=== PATIENT | male | born 1985 | race Caucasian/White ===

== ENCOUNTER 2020-11-15 11:19 | Emergency (ER) | payer OTHER, SELFPAY ==
--- NOTE | ~2020-11-15 | XR_ITS ---
EXAMINATION: XR chest 2V EXAM DATE: 11/15/2020 12:35 INDICATION: Fever and chills. TECHNIQUE: Frontal and lateral projections of the chest obtained and reviewed. There is no prior ottoniel dy for comparison. FINDINGS: There is hyperinflation. Pectus excavatum. The lungs are clear. There are no pleural effus ions. The cardiomediastinal silhouette is within normal limits. There is no pneumothorax suspected. The bones and soft tissues are unremarkable. IMPRESSION: No acute cardiopulmonary findings. Reviewed, dictated and finalized at location A. HOUSE TENDER
[2020-11-15 11:43] VITALS: BP 118/76; PULSE 119; RESP 18; TEMP 38.4; O2SAT 100
--- NOTE | 2020-11-15 11:55 | ED.GENADULT ---
HPI - General Adult General Chief complaint: Upper Respiratory Infection Stated complaint: COVID Symptoms Time Seen by Provider: 11/15/20 11:50 Source: patient and RN notes reviewed Mode of arrival: ambulatory Limitations: no limitations History of Present Illness HPI narrative: 35-year-old male presents with complaints of upper respiratory infection symptoms, fever, body aches, cough, and intermittent headaches (not the worst of his/her life) for day s. with little relief. Dry cough with intermittent productive cough (phlegm). Rhinorrhea and nasal congestion. No exacerbating factors. High fevers, highest F, orally with intermittent chills. No nausea, vomiting, and abdominal pain. Denies chest pain, dyspnea, coughing up blood, difficulty swallowing, jaw pain, dental pain, facial pain, foreign body sensation, and rash. Some parts of this dictation were generated by voice recognition software and may contain typographical and/or grammatical inaccuracies. Related Data Home Medications Medication Instructions Recorded Confirmed No Home Medications 11/15/20 11/15/20 Allergies Allergy/AdvReac Type Severity Reaction Status Date / Time No Known Allergies Allergy Verified 11/15/20 11:30 Review of Systems Review of Systems: Narrative: CONSTITUTIONAL: Complains of fever. Denies chills, sweats. EYES: Denies visual changes, redness, discharge. ENT: Complains of rhinorrhea, congestion. Denies sore throat, otalgia. CARDIOVASCULAR: Denies chest pain, palpitations, edema. RESPIRATORY: Denies dyspnea, wheezing. Complains of dry cough. GASTROINTESTINAL: Denies abdominal pain, nausea, vomiting, diarrhea. GENITOURINARY: Denies dysuria, hematuria, abnormal discharge. SKIN: Denies rash or itching. MUSCULOSKELETAL: Denies acute back pain, joint pain. Complains of myalgia. NEUROLOGIC: Denies numbness or focal weakness. PSYCHIATRIC: Denies anxiety or depression. Complains of intermittent ESTRELLA. All systems reviewed & are unremarkable except as noted in HPI and below PMFSH Comments At time of signature, agree with nurse past medical, surgical, social, and family history. There is no relevant family history pertinent to the presenting complaint. Exam Narrative: Exam Narrative: GENERAL: This is a well-nourished, well-developed patient, in no apparent distress. Speaks in full sentences and ambulates with steady gait without dyspnea. HEAD: normocephalic, atraumatic. EYES: PERRL. Sclera clear/white. Vision is grossly intact. EARS: External ears normal, auditory canals clear and without drainage, TMs normal without perforation. Hearing grossly intact. NOSE: External nose normal with no obvious nasal discharge, nares with mild-moderate redness and enlarged turbinates, clear rhinorrhea. THROAT: Mucous membranes moist, posterior pharynx with PND, mild erythema, no exudate, and normal tonsils. No drainage, no concern for Peritonsillar abscess. No drooling, trismus, or neck swelling. NECK: Neck supple, non-tender without lymphadenopathy, masses or thyromegaly. CARDIOVASCULAR: Regular rate and rhythm without murmurs, gallops, or rubs. RESPIRATORY: Clear to auscultation. Breath sounds equal bilaterally. No wheezes, rales, or rhonchi. GASTROINTESTINAL: Abdomen soft, non-tender, nondistended. Bowel sounds are active. No hepato-splenomegaly, or palpable masses. No guarding. SKIN: warm, intact with no suspicious lesions or rash, good texture and turgor. NEURO: awake, alert, and oriented to person, place and time. There were no obvious focal neurologic abnormalities. EXTREMITIES: No clubbing, cyanosis, or edema. BACK: Nontender without deformity or crepitance. No flank tenderness with palpation. Dede Coma Scale Eye Opening: Spontaneous 4 Dede Coma Scale Motor: Obeys Commands 6 Ethel Coma Scale Verbal: Oriented 5 Course Vital Signs Vital signs: Vital Signs Temperature 38.4 C H 11/15/20 11:43 Pulse Rate 119 H 11/15/20 11:43 Respira
[2020-11-15 12:08] VITALS: TEMP 38.4
[2020-11-15] MEDS: IBUPROFEN 400 MG TABLET PO (12:08)
--- NOTE | 2020-11-15 12:10 | ED.GENADULT ---
HPI - General Adult General Chief complaint: Upper Respiratory Infection Stated complaint: COVID Symptoms Time Seen by Provider: 11/15/20 11:50 Source: patient and RN notes reviewed Mode of arrival: ambulatory Limitations: no limitations History of Present Illness HPI narrative: 35-year-old male presents with complaints of upper respiratory infection symptoms, fever, sore throat, cough, intermittent dyspnea and headaches (not the worst of his life) for the past 3 days. Julio reports increasing symptoms over the past 24 hours with increase sore throat, decrease po intake, and high fever. No treatment. Dry cough without chest congestion. Rhinorrhea and nasal congestion. Exacerbating factors consist of swallowing. High fevers, highest 102F, orally with intermittent chills and sweats. No nausea, vomiting, and abdominal pain. Denies chest pain, coughing up blood, jaw pain, dental pain, facial pain, foreign body sensation, and rash. The patient reports he have not been diagnosed with COVID-19. The patient reports he is not waiting for the results of a COVID-19 lab test. The patient reports he do not have weakness or fatigue. The patient reports he do not have a worsening cough. Denies chest pain. The patient reports he do not have any loss of taste or diarrhea. Denies recent traveling. Denies concerns for COVID-19 or exposures been home with limited outdoor exposure except for essential household needs and return home. At this time, patient is not suspected of having COVID-19. Some parts of this dictation were generated by voice recognition software and may contain typographical and/or grammatical inaccuracies. Related Data Allergies Allergy/AdvReac Type Severity Reaction Status Date / Time No Known Allergies Allergy Verified 11/16/20 15:08 Review of Systems Review of Systems: Narrative: CONSTITUTIONAL: Complains of fever, chills, sweats. EYES: Denies visual changes, redness, discharge. ENT: Complains of rhinorrhea, congestion, sore throat. Denies otalgia. CARDIOVASCULAR: Denies chest pain, palpitations, edema. RESPIRATORY: Denies wheezing. Complains of intermittent dyspnea, dry cough. GASTROINTESTINAL: Denies abdominal pain, nausea, vomiting, diarrhea. GENITOURINARY: Denies dysuria, hematuria, abnormal discharge. SKIN: Denies rash or itching. MUSCULOSKELETAL: Denies acute back pain, joint pain, myalgia. NEUROLOGIC: Denies numbness or focal weakness. PSYCHIATRIC: Denies anxiety or depression. Complains of intermittent ESTRELLA. All systems reviewed & are unremarkable except as noted in HPI and below PMFSH Past Medical History Medical History (Updated 11/19/20 @ 17:43 by Narciso Cummins MD) Anxiety Depression Hemorrhoids History of OCD (obsessive compulsive disorder) Irritable bowel syndrome Surgical History Surgical History (Updated 11/19/20 @ 17:43 by Narciso Cummins MD) History of colonoscopy Family History Family History (Updated 11/16/20 @ 16:19 by Jessica Ryan PA-C) Father Unknown family medical history Mother Alive and well Hyperthyroidism Other Hypothyroidism Social History Social History (Updated 11/16/20 @ 15:46 by Jessica Ryan PA-C) Social History: Mr. Mcneil lives at home with his mother. He is independent in his ADLs but does not drive. His PCP is Dr. Siddiqui. He is a lifelong nonsmoker and does not drink alcohol or use drugs. He designates his sister, Jennifer, as his surrogate decision maker and he would like to be a full code. Smoking status: Never smoker Tobacco type: cigarettes Second hand tobacco smoke exposure: No Alcohol intake: never Substance use: never Substance use type: does not use Additional living arrangements comments: mother and her spouse Gender identity (if verbalized by the patient): Male Spiritual care concerns: No Comments At time of signature, agree with nurse past medical, surgical, social, and family history. There is
--- NOTE | 2020-11-15 12:30 | PC.NURSE ---
Pt was given 1,000 mg of Tylenol at 12:20. Unable to scan bracelet, it would not accept. Made several attempts.
[2020-11-15 13:00] VITALS: BP 124/70; PULSE 140; RESP 18; TEMP 38.1; O2SAT 97
--- NOTE | 2020-11-15 13:33 | PC.NURSE ---
Pt very anxious upon visit, retook vitals, pulse is higher than upon arrival, pt figetdy, anxious to get home, pt is OCD.
== END 2020-11-15 13:00 | disposition home or self-care (01) ==
PROVIDERS: Emergency Provider Nurse Practitioner Family; PCP Family Medicine
DX: B34.9 Viral infection, unspecified (principal); Z20.828 Contact with and (suspected) exposure to other viral communicable diseases
CPT/HCPCS: 71046; 87081; 87804; 87880; 99213; A9270; G0463

== ENCOUNTER 2020-11-16 07:46 | Inpatient (IN) | payer OTHER, SELFPAY ==
[2020-11-16] VITALS (17 sets, daily range): BP systolic 103–127; BP diastolic 65–76; PULSE 81–140; RESP 16–26; TEMP 35.9–37.3; O2SAT 93–100
--- NOTE | ~2020-11-16 | XR_ITS ---
EXAMINATION: XR chest 1V portable DATE: 11/21/2020 13:45 INDICATION: COVID pneumonia TECHNIQUE: frontal view of the chest was obtained. COMPARISON: Chest radiograph dated 11/16/2020 FINDINGS: Has been increase in size of a still relatively focal airspace opacity in the left lower lobe. No oth er new airspace opacities, pulmonary edema, pleural effusion or pneumothorax. The cardiomediastinal silhouette is normal. Calcified left hilar lymph nodes consistent with old granulomatous disease. Vis ualized bones and soft tissues are unremarkable. IMPRESSION: 1. Interval increase in focal airspace opacity in the left lower lobe concerning for progression of p neumonia. The isolated location is atypical for COVID pneumonia and would also consider either more t ypical community-acquired pneumonia or aspiration pneumonia. Reviewed, dictated and finalized at location A. ER POWDER BLENDER WET IMPRESSION: 1. Interval increase in focal airspace opacity in the left lower lobe concernin g for progression of pneumonia. The isolated location is atypical for COVID pne umonia and would also consider either more typical community-acquired pneumonia or aspiration pneumonia.
--- NOTE | ~2020-11-16 | CT_ITS ---
EXAMINATION: CT soft tissue neck w con EXAM DATE: 11/16/2020 10:06 INDICATION: Sore throat, can't swallow. TECHNIQUE: Spiral CT of the neck was performed following intravenous injection of 75 mL Omnipaque 350 . Axial, coronal and sagittal images were reviewed. The dose-length product (DLP) for this examinat ion was 349.75 mGy-cm. The exposure was tailored according to patient size (auto mA exposure control ), and iterative reconstruction (ASIR) was used as additional dose reduction technique. There is no prior study for comparison. FINDINGS: The thyroid gland is unremarkable. The submandibular and parotid glands are symmetric. There is no cervical lymphadenopathy. There are no masses identified. The superior mediastinum is unremarkable. The airway is unremarkable, epiglottis and aryepiglottic folds are normal in appeara nce.. Parapharyngeal and pre-glottic fat planes are preserved. The opacified vasculature is paten t. The orbits are unremarkable. Visualized sinuses and mastoid air cells are well aerated. Lung apices are clear. Patient is cachectic. There is cervical spondylosis. IMPRESSION: Unremarkable neck CT exam. Reviewed, dictated and finalized at location A. BUSINESS DEVELOPMENT IMPRESSION: Unremarkable neck CT exam.
--- NOTE | ~2020-11-16 | US_ITS ---
EXAMINATION: US abdomen limited EXAM DATE: 11/20/2020 09:07 INDICATION: Thrombocytopenia. Rule out hepatosplenomegaly. TECHNIQUE: Multiple grayscale and Doppler images of the abdomen right upper quadrant were obtained (b y a technologist who performed the scan) and subsequently reviewed. There is no prior study for bernie bailey. FINDINGS: The pancreatic head and body are normal in appearance. The pancreatic tail is not visualized. The l iver has normal echogenicity and contour. There are no focal liver lesions identified. There is no evidence of intrahepatic biliary duct dilation. Portal venous flow was seen in the hepatopedal, nor mal direction and has normal Doppler waveform. No right-sided hydronephrosis. Common bile duct measures 3 mm, which is normal. The gallbladder wall is normal in thickness, with ex pected amount of distention. No sonographic evidence of pericholecystic fluid. There is no cholelit hiases. Technologist performing exam reports patient did not demonstrate sonographic Burks's sign. Please note that this sign is less reliable in patients who have received pain medication. Spleen measures 13.4 x 6.2 x 5.4 cm, upper limits of normal. IMPRESSION: 1. Spleen size upper limits of normal. Reviewed, dictated and finalized at location B. OPHOTOGRAPHY TECHNICIAN
--- NOTE | ~2020-11-16 | XR_ITS ---
EXAMINATION: XR chest 1V portable EXAM DATE: 11/16/2020 08:48 INDICATION: Weakness. TECHNIQUE: Portable AP frontal chest x-ray was obtained. Comparison is made to prior examination from 11/15/2020. FINDINGS: Mild hyperinflation unchanged. Possible developing left lower lobe retrocardiac infiltrate. There are no pleural effusions. The cardiomediastinal silhouette is within normal limits. There is no pneumothorax suspected. The bones and soft tissues are unremarkable. IMPRESSION: Possible developing left lower lobe acute airspace disease, infection. Reviewed, dictated and finalized at location A. INUOUS MINING OPERATOR IMPRESSION: Possible developing left lower lobe acute airspace disease, infecti on.
[2020-11-16 08:24] LABS: Hematocrit 40.9 % (42.0-52.0); Hemoglobin 13.7 g/dL (14.0-18.0); Immature Platelet Fraction Pct 10.8 % (0.9-11.2); Mean Corpuscular HGB Conc 33.5 g/dl (32-36); Mean Corpuscular Hemoglobin 29.6 pg (26-34); Mean Corpuscular Volume 88.3 fl (80-100); Mean Platelet Volume 12.1 fl (7.4-10.4); Platelet Count Result 117 k/mm3 (150-375); Red Blood Count 4.63 M/mm3 (4.6-6.20); White Blood Count 11.9 K/mm3 (4.5-10.0)
--- NOTE | 2020-11-16 08:26 | ECG_ITS ---
Measurements Intervals [place]y Rate: 98 P: 81 CT: 142 QRS: 89 QRSD: 97 T: 27 QT: 357 QTc: 456 Interpretive Statements SINUS RHYTHM POSSIBLE LEFT ATRIAL ENLARGEMENT INCOMPLETE RIGHT BUNDLE BRANCH BLOCK DELAYED PRECORDIAL R/S TRANSITION BORDERLINE T WAVE ABNORMALITY- ANT/INF LEADS BORDERLINE ECG Electronically Signed On 11-16-2020 14:15:50 GEOPHYSICS TEACHER by Edward Rocha D.O.
[2020-11-16 08:35] LABS: Band Neutrophils Percent 7 % (0-6); Lymphocytes Absolute Manual 0.35 K/mm3 (1.1-4.5); Monocytes Absolute Manual 0.83 K/mm3 (0.1-0.90); Monocytes Percent Manual 7 % (3-9); Neutrophils Absolute Manual 10.71 K/mm3 (1.3-6.7); Neutrophils Percent Manual 83 % (46-73); Platelet Estimate Decreased (Adequate); Total Cells Counted 100
[2020-11-16 08:45] LABS: Alanine Aminotransferase 35 U/L (4-50); Albumin Level 4.7 g/dL (3.5-5.1); Alkaline Phosphatase 55 U/L (38-126); Anion Gap 15 mmol/L (8-16); Aspartate Amino Transferase 42 U/L (17-59); Bilirubin,Total 0.9 mg/dL (0.2-1.3); Blood Urea Nitrogen 38 mg/dL (9-20); Calcium 9.7 mg/dL (8.4-10.2); Carbon Dioxide 26 mmol/L (22-30); Chloride 98 mmol/L (98-107); Estimated CRCL calculation 51 ml/min; Estimated Glomerular Filt Rate > 60; Glucose 133 mg/dL (75-110); Lipase 53 U/L (23-300); Potassium 4.7 mmol/L (3.4-5.0); Sodium 139 mmol/L (137-145)
--- NOTE | 2020-11-16 08:46 | ED.GENADULT ---
HPI - General Adult General Chief complaint: Unspecified Stated complaint: shortness of breath Time Seen by Provider: 11/16/20 08:11 Source: patient Mode of arrival: ambulatory Limitations: no limitations History of Present Illness HPI narrative: This patient is a 35 year old male who presents for evaluation of inability to eat or drink. Patient was evaluated at [facility] yesterday for fever, sore throat, cough for 3 days. He reports that his cough is nonproductive. He reports his throat pain has worsened so he has come to ER. He reports since yesterday he is unable to take pills, drink, or eat food. He feels like it comes right back up. He is constantly having to spit everything . His highest fever was 100.2 F. He reports abdominal pain but he thinks it may be due to dehydration. Patient is extremely thin. He states that his diet has consistent of only bread and eggs for years. He reports being admitted in 2016 with GI issues, but he can not specify a diagnosis or findings. He has not followed with a doctor since. Related Data Allergies Allergy/AdvReac Type Severity Reaction Status Date / Time No Known Allergies Allergy Verified 11/16/20 15:08 Review of Systems Review of Systems: All systems reviewed & are unremarkable except as noted in HPI and below Constitutional: Constitutional: Reports body ache(s) and Reports fever(s) ENT: Reports dysphagia, Denies hoarseness, Denies nasal congestion and Reports odynophagia Cardiovascular: Cardiovascular: Reports no additional cardiovascular complaints Respiratory: Respiratory: Reports cough, Denies hemoptysis and Denies pain on inspiration Gastrointestinal: Gastrointestinal: Reports abdominal pain, Denies diarrhea and Reports nausea PMFSH Past Medical History Medical History (Updated 11/16/20 @ 18:29 by Isaura Varma MD) Anxiety Depression Hemorrhoids History of OCD (obsessive compulsive disorder) Irritable bowel syndrome Surgical History Surgical History (Updated 11/15/20 @ 12:14 by OLIVER Dacosta) History of colonoscopy Family History Family History (Updated 11/16/20 @ 16:19 by Jessica Ryan PA-C) Father Unknown family medical history Mother Alive and well Hyperthyroidism Other Hypothyroidism Social History Social History (Updated 11/16/20 @ 15:46 by Jessica Ryan PA-C) Social History: Mr. Mcneil lives at home with his mother. He is independent in his ADLs but does not drive. His PCP is Dr. Siddiqui. He is a lifelong nonsmoker and does not drink alcohol or use drugs. He designates his sister, Jennifer, as his surrogate decision maker and he would like to be a full code. Smoking status: Never smoker Tobacco type: cigarettes Second hand tobacco smoke exposure: No Alcohol intake: never Substance use: never Substance use type: does not use Additional living arrangements comments: mother and her spouse Gender identity (if verbalized by the patient): Male Spiritual care concerns: No Exam Const: General: cooperative, no acute distress and alert Nutritional Appearance: cachectic Orientation/consciousness: patient oriented x3 Other: constantly spitting HENMT: Head: normocephalic and atraumatic Face and sinus: face symmetric Mouth: Yes Normal oral and palatal mucosa present, Yes lip normal, Yes oropharynx normal and Yes moist mucous membranes Throat: uvula midline and posterior oropharynx abnormal erythema Eyes: Pupils: Equal, round and reactive pupils present EOM: EOMs intact bilaterally Resp: Effort & Inspection: normal respiratory effort and able to speak in complete sentences Auscultation: clear to auscultation bilaterally GI: GI Palp: Yes Soft to palpation, Yes Tenderness to palpation present (GI) (epigastric) and No Guarding due to palpation present (GI) Back/Spine/Pelvis: Back: no CVA tenderness Course Consultations Consultation #1: I discussed case with geeta
[2020-11-16 08:49] LABS: INR 1.2
[2020-11-16 08:50] LABS: Partial Thromboplastin Time 41.7 SECONDS (22.3-36.8)
[2020-11-16 08:51] LABS: Magnesium 1.9 mg/dL (1.6-2.3)
[2020-11-16 08:56] LABS: Lactic Acid Reflex 3.6 mmol/L (0.7-2.1)
[2020-11-16] MEDS: PANTOPRAZOLE SODIUM IV 40 MG VIAL IV PUSH (08:56)
[2020-11-16] MEDS: LACTATED RINGERS 1,000 ML 999 ML IV CONT (08:56)
[2020-11-16] MEDS: ONDANSETRON INJ 4 MG/2 ML VIAL IV PUSH (08:56)
[2020-11-16] MEDS: SODIUM CHLORIDE 0.9% IV 1,000 ML 999 ML IV CONT (09:32)
[2020-11-16 10:28] LABS: Add Urine Microscopic? YES; Appearance Urine Clear (Clear); Bacteria Urine Trace /hpf; Bilirubin Urine Negative (Negative); Blood Urine Negative (Negative); Color Urine Yellow (Yellow); Glucose Urine UA Negative (Negative); Ketones Urine Trace mg/dL (Negative); Leukocyte Esterase Ur Negative LEU/UL (Negative); Mucus Urine Rare /lpf; Nitrate Urine Negative (Negative); Protein Urine 2+ mg/dL (Negative); Squamous Epithelial Cell Urine Rare /hpf (Few); Urobilinogen Urine Negative mg/dL (<2.0)
[2020-11-16 11:41] LABS: Reflex Lactic Acid Yes or No Add Lactic
[2020-11-16 12:38] LABS: Lactic Acid 0.7 mmol/L (0.7-2.1)
[2020-11-16 13:51] LABS: HIV 1/2 Ab P24 Ag Result Negative (Negative)
--- NOTE | 2020-11-16 14:31 | ADMGEN ---
This patient, Julio Mcneil, was admitted to [address] [facility] Surg Room 319-01. Patient/family oriented to hospital policies and general routines including ID bracelet, bed and alarms, visiting hours, pain management, procedures, bathroom and other care routines, personal items, smoking policy, room service/diet, and visiting hours. Information on how to activate the Rapid Response Team has been discussed. Patient/Family are encouraged to report perceived risks to care and to ask questions if they do not understand what they are told or what they should do.
--- NOTE | 2020-11-16 15:35 | PM.IMHP ---
H&P: HPI History of Present Illness Date/Time: 11/16/20 15:35 Chief Complaint: Dysphagia Narrative: Date of admission: 11/16/2020 Date of service: 11/16/2020 Julio Mcneil is a 35 year old male with history of obsessive-compulsive disorder, depression, anxiety, and likely IBS who presented to the emergency department on 11/16/2020 with several complaints. He had previously been evaluated at [facility] the day before. He tells me that his concerns have been going on for about 1 week. It initially started with him waking up in the middle the night with chills and sweats, however upon further consideration, he notes that this occurs in the winter time when he sleeps with his heater on. About 5 days ago he ate some burnt toast that scratched his throat, causing some soreness for about 1-2 days. Then he noticed a frontal, tension type headache that lasted about 24 hours. He then noted that his sore throat worsened and yesterday he was only able to eat a single boiled potato with which he had difficulty swallowing. He was not able to swallow any liquids. At that time he was evaluated by [facility]. He reports he tested negative for rapid strep and flu test at that time. It was recommended that he take zinc and vitamin-C, however he was not able to swallow these pills and later coughed them up whole. He also notes that he has had 2 episodes of regurgitation of pieces of grapes that appeared undigested after being eaten several days prior. He reports that last night he was drooling significantly while sleeping. He believes that his neck is slightly swollen. He denies erythema or exudate. He complains of cough with white sputum production. He feels that his voice is muffled. He feels very congested. He reports a temperature with T-max 102.0? at home. Review of Systems Review of Systems: Narrative: All systems reviewed with pertinent positives and negatives as per HPI and as below. He has nausea but denies vomiting. He denies abdominal pain. Denies body aches. Denies anosmia or dysgeusia. He denies ear pain or drainage. He denies dizziness or lightheadedness. He reports that he has lost approximately 10 lb within 1 year, but also notes that he has only really eaten bread and eggs over the past year due to issues with his IBS. He is now trying a low FODMAP diet that has helped his symptoms. He had a formed bowel movement yesterday. He denies dysuria, urgency, frequency, or hematuria. He reports he had a colonoscopy in 2016 for evaluation of a myriad of symptoms that was ultimately unremarkable. He denies depression or anxiety. He does note that he has OCD which he manages with meditation and journaling. He is not on psychiatric medications. He has not seen a psychiatrist in some time but is current with a therapist. [facility] Past Medical History Medical History (Updated 11/16/20 @ 16:26 by Jessica Ryan PA-C) Anxiety Depression Hemorrhoids History of OCD (obsessive compulsive disorder) Irritable bowel syndrome Surgical History Surgical History (Updated 11/15/20 @ 12:14 by OLIVER Dacosta) History of colonoscopy Family History Family History (Updated 11/16/20 @ 16:19 by Jessica Ryan PA-C) Father Unknown family medical history Mother Alive and well Hyperthyroidism Other Hypothyroidism Social History Social History (Updated 11/16/20 @ 15:46 by Jessica Ryan PA-C) Social History: Mr. Mcneil lives at home with his mother. He is independent in his ADLs but does not drive. His PCP is Dr. Siddiqui. He is a lifelong nonsmoker and does not drink alcohol or use drugs. He designates his sister, Jennifer, as his surrogate decision maker and he would like to be a full code. Smoking status: Never smoker Tobacco type: cigarettes Second hand tobacco smoke exposure: No Alcohol intake: never Substance use: never Substance use type: does not use Additional living arrangements comments:
[2020-11-16] MEDS: FLUTICASONE PROPIONATE 0.05% NA SPR 16 GM BTL (*BKC) 1 SPRAY NASAL (17:14)
[2020-11-16] MEDS: SODIUM CHLORIDE 0.9% IV 1,000 ML 125 ML IV CONT ×2 (17:14→20:43)
[2020-11-16 19:30] LABS: SARS-CoV-2 RNA PCR Positive
[2020-11-16] MEDS: guaiFENesin 12 HR 600 MG TABCR PO (20:43)
[2020-11-17] VITALS (8 sets, daily range): BP systolic 108–131; BP diastolic 44–69; PULSE 84–122; RESP 16–18; TEMP 36.7–38.8; O2SAT 94–100
[2020-11-17] MEDS: SODIUM CHLORIDE 0.9% IV 1,000 ML 125 ML IV CONT ×2 (05:12→13:53)
[2020-11-17 07:18] LABS: Hematocrit 34.5 % (42.0-52.0); Hemoglobin 11.1 g/dL (14.0-18.0); Immature Granulocyte Absolute 0.01 K/mm3 (0.00-0.031); Immature Granulocyte Percent A 0.2 % (0-0.5); Lymphocytes Percent Auto 12.7 % (18.3-44.2); Mean Corpuscular HGB Conc 32.2 g/dl (32-36); Mean Corpuscular Hemoglobin 28.8 pg (26-34); Mean Corpuscular Volume 89.6 fl (80-100); Mean Platelet Volume 12.4 fl (7.4-10.4); Monocytes Absolute Auto 0.3 K/mm3 (0.1-0.6); Monocytes Percent Auto 5.7 % (2.6-8.5); Neutrophils Absolute Auto 3.8 K/mm3 (1.3-6.7); Neutrophils Percent Auto 81.4 % (45.5-73.1); Platelet Count Result 72 k/mm3 (150-375); Red Blood Count 3.85 M/mm3 (4.6-6.20); Red Cell Distribution Width 11.9 % (11.5-14.5); White Blood Count 4.7 K/mm3 (4.5-10.0)
[2020-11-17 07:34] LABS: Alanine Aminotransferase 26 U/L (4-50); Albumin Level 3.4 g/dL (3.5-5.1); Alkaline Phosphatase 46 U/L (38-126); Anion Gap 9 mmol/L (8-16); Aspartate Amino Transferase 32 U/L (17-59); Blood Urea Nitrogen 21 mg/dL (9-20); Calcium 8.9 mg/dL (8.4-10.2); Carbon Dioxide 26 mmol/L (22-30); Chloride 105 mmol/L (98-107); Estimated CRCL calculation 72 ml/min; Estimated Glomerular Filt Rate > 60; Glucose 92 mg/dL (75-110); Magnesium 1.8 mg/dL (1.6-2.3); Phosphorus 3.3 mg/dL (2.5-4.5); Potassium 4.2 mmol/L (3.4-5.0); Sodium 140 mmol/L (137-145)
[2020-11-17 07:43] LABS: CRP 20.4 mg/dL (<1.0)
[2020-11-17] MEDS: guaiFENesin 12 HR 600 MG TABCR PO ×2 (08:28→22:00)
[2020-11-17] MEDS: FLUTICASONE PROPIONATE 0.05% NA SPR 16 GM BTL (*BKC) 1 SPRAY NASAL ×2 (08:28→17:13)
[2020-11-17] MEDS: LORATADINE 10 MG TABLET PO (08:28)
[2020-11-17] MEDS: PANTOPRAZOLE SODIUM IV 40 MG VIAL IV PUSH (08:29)
[2020-11-17] MEDS: ENOXAPARIN 40 MG/0.4 ML SYRINGE SUB-Q (08:29)
--- NOTE | 2020-11-17 14:37 | PM.IMPN ---
Progress Note: A&P Assessment and Plan (1) Sepsis: Code(s): A41.9 - Sepsis, unspecified organism Status: Acute Assessment and Plan: Present on admission supported by tachycardia, tachypnea, fever, and leukocytosis. He had elevated lactic acid upon presentation that normalized with IV fluids. Source is likely viral illness from COVID-19. Influenza and strep negative. T-max 101.2?. He has been afebrile >24 hours. Leukocytosis resolved. Influenza negative. Strep negative. Blood cultures are pending. IV antibiotics discontinued as source is COVID-19 and secondary bacterial infection is unlikely. Continue gentle IV fluid rehydration Monitor electrolytes and vitals closely Acetaminophen as needed for fever (2) Pneumonia due to COVID-19 virus: Code(s): U07.1 - COVID-19; J12.89 - Other viral pneumonia Status: Acute Assessment and Plan: Onset of symptoms 11/13. CXR concerning for development of left lower lobe airspace disease. Denies COVID positive contacts. He reports cough and sputum production. He is maintaining adequate oxygen saturations on room air. Positive test on 11/16/20. Fevers resolved. Continue isolation precautions Discontinue IV ceftriaxone and azithromycin as noted above as secondary bacterial pneumonia is unlikely Supportive care to include antipyretics, bronchodilators, and expect parents Is not a candidate for dexamethasone or remdesivir at this time as he does not have any supplemental oxygen requirements Trend acute phase reactants (3) Dysphagia: Code(s): R13.10 - Dysphagia, unspecified Status: Acute Assessment and Plan: Patient reports dysphagia and odynophagia with both solids and liquids. CT neck is unremarkable and airway is patent. He is managing his oral secretions. Oropharynx exam unremarkable. He reports coughing up whole foods. Esophageal stricture or Zenker's diverticulum is considered. Will place consult to Gastroenterology. Patient will likely benefit from EGD due to regurgitation of solid foods. Appreciate GI input. Aspiration precautions in place Recommend soft diet At this time, I do not feel that IV steroids are warranted as airway is patent and patient is managing secretions. (4) Malnutrition: Code(s): E46 - Unspecified protein-calorie malnutrition Status: Acute Assessment and Plan: Patient is severely malnourished with BMI of 16.1. He reports that he eats 2-3 eggs and 2 slices of bread per day. He has done this every day for 1 year. He reports eating 1700 calories per day. He is cachectic in appearance. Anorexia nervosa or bulimia nervosa is considered. HIV negative. Malignancy is not excludable however his history is nonspecific for specific area of concern. I feel that GI evaluation is most pertinent in ruling out pathologic process. He reports poor p.o. intake secondary to GI symptoms, stating that most foods cause him to have diarrhea. He is certainly at risk for refeeding syndrome. Electrolytes are stable. I will place consult to dietitian. Recommendations are appreciated. Will monitor electrolytes closely. (5) Thrombocytopenia: Code(s): D69.6 - Thrombocytopenia, unspecified Status: Acute Assessment and Plan: Patient has mild thrombocytopenia, likely secondary to acute viral illness. Platelets are low at 72,000 today, therefore Lovenox for DVT prophylaxis has been discontinued. Will transition to SCDs and encourage frequent ambulation. Monitor CBC with diff daily Subjective Date/time seen: 11/17/20 14:37 Interval history: Date of service: 11/17/2020 Julio Stover Casimiro Mcneil is a 35 year old male with history of obsessive-compulsive disorder, depression, anxiety, and likely IBS who is seen and follow-up for COVID-19 pneumonia and complaints of dysphagia. Reports that he is feeling better today. His swallowing has improved. He no longer endorses odynophagia
[2020-11-17] MEDS: ACETAMINOPHEN 325 MG TABLET 650 MG PO (22:00)
[2020-11-17] MEDS: BENZONATATE 100 MG CAPSULE 200 MG PO (22:06)
[2020-11-18] VITALS (10 sets, daily range): BP systolic 98–127; BP diastolic 52–69; PULSE 76–97; RESP 16–20; TEMP 36.8–39.3; O2SAT 96–99; BMI 16.1
[2020-11-18] MEDS: SODIUM CHLORIDE 0.9% IV 1,000 ML 70 ML IV CONT (03:40)
--- NOTE | 2020-11-18 05:30 | PC.NURSE ---
SPOKE W/ PT'S SISTER AND UPDATE GIVEN.
[2020-11-18] MEDS: ACETAMINOPHEN 325 MG TABLET 650 MG PO ×3 (05:40→20:04)
[2020-11-18 06:32] LABS: Hematocrit 31.2 % (42.0-52.0); Hemoglobin 10.7 g/dL (14.0-18.0); Immature Platelet Fraction Pct 7.1 % (0.9-11.2); Lymphocytes Absolute Auto 0.33 K/mm3 (0.9-3.2); Lymphocytes Percent Auto 18.2 % (18.3-44.2); Mean Corpuscular HGB Conc 34.3 g/dl (32-36); Mean Corpuscular Hemoglobin 29.7 pg (26-34); Mean Corpuscular Volume 86.7 fl (80-100); Mean Platelet Volume 11.4 fl (7.4-10.4); Monocytes Absolute Auto 0.2 K/mm3 (0.1-0.6); Monocytes Percent Auto 8.8 % (2.6-8.5); Neutrophils Absolute Auto 1.3 K/mm3 (1.3-6.7); Platelet Count Result 64 k/mm3 (150-375); Red Cell Distribution Width 11.8 % (11.5-14.5)
[2020-11-18 06:39] LABS: White Blood Count 1.8 K/mm3 (4.5-10.0)
--- NOTE | 2020-11-18 06:47 | PC.NURSE ---
DR. RAYMOND MADE AWARE OF CRITICAL WBC COUNT OF 1.8 TODAY. ALSO MADE AWARE OF FEBRILE TEMPS AND TX W/ TYLENOL X2 THROUGHOUT NIGHT. NO NEW ORDERS.
[2020-11-18 06:52] LABS: Alanine Aminotransferase 33 U/L (4-50); Alkaline Phosphatase 45 U/L (38-126); Anion Gap 4 mmol/L (8-16); Aspartate Amino Transferase 49 U/L (17-59); Bilirubin,Total 0.8 mg/dL (0.2-1.3); Blood Urea Nitrogen 18 mg/dL (9-20); Calcium 8.2 mg/dL (8.4-10.2); Carbon Dioxide 29 mmol/L (22-30); Chloride 103 mmol/L (98-107); Estimated CRCL calculation 72 ml/min; Estimated Glomerular Filt Rate > 60; Glucose 108 mg/dL (75-110); Magnesium 1.4 mg/dL (1.6-2.3); Phosphorus 2.8 mg/dL (2.5-4.5); Potassium 3.5 mmol/L (3.4-5.0); Sodium 136 mmol/L (137-145)
[2020-11-18 07:28] LABS: CRP 16.9 mg/dL (<1.0)
[2020-11-18 07:46] LABS: Thyroid Stimulating Hormone Reflex < 0.015 uIU/mL (0.465-4.68)
--- NOTE | 2020-11-18 08:20 | PC.NURSE ---
Notified Macy ESCOBEDO of WBC of 1.8. She was aware of this and said we will continue to watch his labs and they are probably related to covid infection. Also, she said that she wants GI to see him to evaluate for EGD.
[2020-11-18 09:02] LABS: Free T4 Free Thyroxine Reflex 3.09 ng/dL (0.78-2.19)
[2020-11-18] MEDS: PANTOPRAZOLE SODIUM IV 40 MG VIAL IV PUSH (09:33)
[2020-11-18] MEDS: MAGNESIUM SULF 2 GM/WATER 50ML 2 GM/50 ML BAG IVPB (09:34)
[2020-11-18] MEDS: guaiFENesin 12 HR 600 MG TABCR PO ×2 (09:34→22:18)
[2020-11-18] MEDS: FLUTICASONE PROPIONATE 0.05% NA SPR 16 GM BTL (*BKC) 1 SPRAY NASAL ×2 (09:34→17:23)
[2020-11-18] MEDS: ZINC SULFATE 220 MG CAPSULE PO (09:34)
[2020-11-18] MEDS: ASCORBIC ACID 125 MG TABLET PO (09:34)
[2020-11-18] MEDS: LORATADINE 10 MG TABLET PO (09:34)
[2020-11-18] MEDS: THERAPEUTIC MULTIVITAMINS/MINERALS TAB (*BKC) 1 TABLET PO (09:46)
[2020-11-18 10:24] LABS: Lactate Dehydrogenase 374 U/L (313-618)
[2020-11-18 10:55] LABS: Lactate Dehydrogenase 418 U/L (313-618)
[2020-11-18] MEDS: PHENOL/SOD PHENO SPRAY CHERRY (*BKC) 1 SPRAY MUCOUS MEM (12:38)
--- NOTE | 2020-11-18 13:19 | PM.IMPN ---
Progress Note: A&P Assessment and Plan (1) Sepsis: Code(s): A41.9 - Sepsis, unspecified organism Status: Acute Assessment and Plan: Present on admission supported by tachycardia, tachypnea, fever, and leukocytosis. He had elevated lactic acid upon presentation that normalized with IV fluids. Source is likely viral illness from COVID-19. Influenza and strep negative. T-max 102.8? and he is still having fevers today. Leukocytosis resolved and patient now leukopenic. Influenza negative. Strep negative. Preliminary blood culture show NGTD and final cultures will be monitored. IV antibiotics discontinued 11/17/20 as source is COVID-19 and secondary bacterial infection is unlikely. IV fluids discontinued as patient is tolerating PO intake Monitor electrolytes and vitals closely Acetaminophen as needed for fever (2) Pneumonia due to COVID-19 virus: Code(s): U07.1 - COVID-19; J12.89 - Other viral pneumonia Status: Acute Assessment and Plan: Onset of symptoms 11/13. CXR concerning for development of left lower lobe airspace disease. Denies COVID positive contacts. He reports cough and sputum production. He is maintaining adequate oxygen saturations on room air. Positive test on 11/16/20. Patient is febrile. Continue isolation precautions He is not a candidate for dexamethasone or remdesivir at this time as he does not have any supplemental oxygen requirements Supportive care to include antipyretics, bronchodilators, and expectorants. Continue vitamin C and Zinc per patient request Trend acute phase reactants IV ceftriaxone and azithromycin discontinued 11/18 as secondary bacterial pneumonia is unlikely (3) Dysphagia: Code(s): R13.10 - Dysphagia, unspecified Status: Acute Assessment and Plan: Patient reports dysphagia and odynophagia with both solids and liquids. CT neck is unremarkable and airway is patent. He is managing his oral secretions. Oropharynx exam unremarkable. He reports coughing up whole foods. Esophageal stricture or Zenker's diverticulum is considered. Gastroenterology has been consulted and input is appreciated. Patient will likely benefit from EGD due to regurgitation of solid foods. Appreciate GI input. Aspiration precautions in place Recommend soft diet Do not feel that IV steroids are warranted as airway is patent and patient is managing secretions. (4) Malnutrition: Code(s): E46 - Unspecified protein-calorie malnutrition Status: Acute Assessment and Plan: Patient is severely malnourished with BMI of 16.1. He reports that he eats 2-3 eggs and 2 slices of bread per day. He has done this every day for 1 year. He reports eating 1700 calories per day. He is cachectic in appearance. Anorexia nervosa or bulimia nervosa is considered. HIV negative. Malignancy is not excludable however his history is nonspecific for specific area of concern. I feel that GI evaluation is most pertinent in ruling out pathologic process. He reports poor p.o. intake secondary to GI symptoms, stating that most foods cause him to have diarrhea. He is at risk for refeeding syndrome. Electrolytes are stable. Husbandry Technician has been consulted and recommendations appreciated. GI consult as above. Input appreciated. Will check calprotectin for possible IBD, ROSE for possible autoimmune etiology, and Celiac panel wirer electrolytes closely. Magnesium slightly low this morning and has been replaced with 2 g IV mag Begin probiotic (5) Thrombocytopenia: Code(s): D69.6 - Thrombocytopenia, unspecified Status: Acute Assessment and Plan: Patient has mild thrombocytopenia, likely secondary to acute viral illness. Platelets are low at 72,000 today, therefore Lovenox for DVT prophylaxis has been discontinued. Will transition to SCDs and encourage frequent ambulation. Monitor CBC with diff daily (6) Pancytopenia: Code(s):
--- NOTE | 2020-11-18 13:59 | PCDIET ---
Nutrition Follow-Up Complete: Underweight related to inadequate oral intake as evidence by BMI 16.1, daily report of eating only bread and eggs daily for a sustained period PO intake of 50% of meals to increase wt Goal: New goal started Additional Notes: Pt feels he has always had GI issues but couldn't remember. Just states he had a crappy diet when younger. Does not know dad's side of health hx. Mom and sister with hyperthyroidism. Pt TSH .015. Pt states lactose will send him to the restroom with multiple diarrhea episodes. He also tried a banana the other day with similar effects. Throat/swallowing issues have only been in the last week or so per patient. 2016 celiac and chron's was r/o per pt. Has been doing low fodmap for a week or two and feels a little better. Recommend starting pre/probiotic and digestive enzymes with meals. Recommend r/o of hashimotos/graves 2/2 to family hx of hypo/hyperthryoidism (mother and sister), SIBO, pancreatic enzyme deficiencies. Education on low fodmap diet provided as pt had already started prior to admission. Encouraged egg white protein powder supplement to tolerated foods to provide additional nutrition. Following PO intake, gi consult, labs every three days
[2020-11-18 15:26] LABS: Folic Acid > 20.0 ng/mL (2.76->20); Vitamin B12 > 1000.0 pg/mL (239-931)
[2020-11-18] MEDS: SACCHAROMYCES BOULARDII 250 MG CAPSULE PO (17:23)
--- NOTE | 2020-11-18 17:35 | WPDGIPROGNO ---
Progress Note: A&P Additional Plan PPI Barium esophagram followed by UGI Improving [facility] [phone] #[id number] Subjective Date/time seen: 11/18/20 17:35 Objective Data Vital Signs Vital Signs: Vital Signs - 24 hr 11/17/20 20:00 11/17/20 22:00 11/17/20 23:40 Temperature 38.8 C H 38.8 C H 38.3 C H Pulse Rate 102 H 95 Respiratory Rate 16 16 Blood Pressure 127/61 119/59 L Pulse Oximetry 95 97 11/18/20 04:00 11/18/20 05:40 11/18/20 08:00 Temperature 39.3 C H 39.3 C H 37.9 C H Pulse Rate 92 97 Respiratory Rate 16 18 Blood Pressure 127/61 122/69 Pulse Oximetry 96 98 11/18/20 12:00 11/18/20 12:35 11/18/20 13:35 Temperature 38.3 C H 38.3 C H 36.8 C Pulse Rate 83 Respiratory Rate 16 Blood Pressure 117/63 Pulse Oximetry 97 11/18/20 15:08 11/18/20 16:12 Temperature 36.8 C 37.1 C Pulse Rate 84 Respiratory Rate 20 Blood Pressure 98/52 L Pulse Oximetry 99 Intake/Output Intake/Output: Intake & Output 11/15/20 11/16/20 11/17/20 11/18/20 23:59 23:59 23:59 23:59 Intake Total 3350 3940 2060 Output Total 1500 600 Balance 3350 2440 1460 Meds/Results Medications: Active Medications Generic Name Dose Route Start Last Admin Trade Name Freq PRN Reason Stop Dose Admin Acetaminophen 650 mg 11/17/20 20:17 11/18/20 12:35 Acetaminophen 325 Mg Tablet PO 650 mg Q6H PRN Administration Mild Pain (1-3) or Fever Albuterol 2 puff 11/16/20 16:17 Albuterol Sulfate (*Sp) Aerosol 1 Puff INHALATION Q6HRT PRN Shortness Of Breath Ascorbic Acid 125 mg 11/18/20 09:00 11/18/20 09:34 Ascorbic Acid 125 Mg Tablet PO 125 mg QAM KELLY Administration Benzonatate 200 mg 11/17/20 18:12 11/17/20 22:06 Benzonatate 100 Mg Capsule PO 200 mg TID PRN Administration Cough Fluticasone Propionate 1 spray 11/16/20 17:00 11/18/20 17:23 Fluticasone Propionate 0.05% Na Spr 16 Gm Btl (*Bkc) NASAL 1 spray BID KELLY Administration Guaifenesin 600 mg 11/16/20 21:00 11/18/20 09:34 Guaifenesin 12 Hr 600 Mg Tabcr PO 600 mg Q12HR KELLY Administration Loratadine 10 mg 11/17/20 09:00 11/18/20 09:34 Loratadine 10 Mg Tablet PO 10 mg DAILY KELLY Administration Multivitamins/Calcium 1 tablet 11/18/20 09:00 11/18/20 09:46 Therapeutic Multivitamins/Minerals Tab (*Bkc) PO 1 tablet QAM KELLY Administration Pantoprazole Sodium 40 mg 11/17/20 09:00 11/18/20 09:33 Pantoprazole Sodium Iv 40 Mg Vial IV PUSH 40 mg QAM KELLY Administration Phenol 1 spray 11/16/20 15:53 11/18/20 12:38 Phenol/Sod Pheno [place] (*Bkc) MUCOUS MEM 1 spray PRN PRN Administration Sore Throat Saccharomyces Boulardii 250 mg 11/18/20 17:00 11/18/20 17:23 Saccharomyces Boulardii 250 Mg Capsule PO 250 mg BID KELLY Administration Zinc Sulfate 220 mg 11/18/20 09:00 11/18/20 09:34 Zinc Sulfate 220 Mg Capsule PO 220 mg QAM KELLY Administration Radiology Results: ITS Impressions Chest X-Ray 11/16/20 08:50 IMPRESSION: Possible developing left lower lobe acute airspace disease, infection. Soft Tissue Neck CT 11/16/20 10:08 IMPRESSION: Unremarkable neck CT exam. Labs Labs: Laboratory Results - last 24 hr 11/17/20 11/17/20 11/18/20 06:51 06:51 06:20 WBC 1.8 L* RBC 3.60 L Hgb 10.7 L Hct 31.2 L MCV 86.7 MCH 29.7 MCHC 34.3 RDW 11.8 Plt Count 64 L MPV 11.4 H Immature Gran % (Auto) 0.0 Neut % (Auto) 73.0 Lymph % (Auto) 18.2 L [place] % (Auto) 8.8 H Eos % (Auto) 0.0 Baso % (Auto) 0.0 L Lymph # (Auto) 0.33 L [place] # (Auto) 0.2 Eos # (Auto) 0.0 Baso # (Auto) 0.0 Abs Immat Gran (auto) 0.00 Absolute Neuts (auto) 1.3 Absolute Nucleated RBC 0.0 Nucleated RBC % 0.0 % Immature Plt Fraction 7.1 Sodium Potassium Chloride Carbon Dioxide Anion Gap BUN Creatinine Estim Creat Clear Calc Estimated G
--- NOTE | 2020-11-18 18:36 | PC.NURSE ---
Radiology called to notified me the patient needs to be NPO for the barium swallow. The procedure will be in the morning of 11/18
--- NOTE | 2020-11-18 18:51 | PC.NURSE ---
Radiology says pt needs to be NPO 6-8 hours before barium swallow. The radiology staff are consulting with their leak gang supervisor to determine by the schedule 11/19. Radiology is to call the nurse taking care of [phone] and let them know when to start the pt on NPO.
--- NOTE | 2020-11-18 19:26 | PC.NURSE ---
Brittney from Radiology is to call nurse for [phone] to notify of if /when barium swallow will happen. If going to be more than 6 hours from that time check with hospitalist and see if ok to let pt eat.
--- NOTE | 2020-11-18 23:03 | CONS_ITS ---
DATE OF CONSULTATION: 11/18/2020 HISTORY OF PRESENT ILLNESS: The patient is a 35-year-old male with history of OCD, depression, and possibly irritable bowel, who I am now asked to provide GI evaluation at the request of the hospitalist service for dysphagia. Primary care provider is Dr. Siddiqui. No primary bookkeeping machine mechanic. Patient is COVID-19 positive on November 16. As per protocol, we will not see personally to preserve PPE and human resources. On November 16, patient was in the ER with 1 week of multiple complaints including odynodysphagia. The day prior to the emergency room visit, he went to the Urgent Care and strep and flu tests were negative. They recommended zinc and vitamin C, but patient could not swallow pills. He also had a productive cough and a fever to 102. Today, his fever was 102.8. He has had some elevated heart rate and tachypnea as well. No other review of systems was obtained. By speaking with hospitalist provider, Jessica Ryan PA-C. It seems patient has had significant evaluation in 2016, at [facility] that was unremarkable. No endocarditis risk factors. ALLERGIES: NO KNOWN DRUG ALLERGIES. MEDICATIONS: 1. Albuterol. 2. Fluticasone. 3. Viscous lidocaine. 4. Claritin. SOCIAL HISTORY: Nonsmoker, nondrinker. FAMILY HISTORY: Negative for GI malignancy or IBD. PHYSICAL EXAMINATION: Not performed. LABORATORY STUDIES: November 18, hemoglobin 11, hematocrit 31, white count of 1.8, MCV 87, CRP 17. Ferritin is 1890, B12 is greater than 1000, folate is greater than 20. TSH is less than 0.015, free T4 is 3.1. On November 17, LFTs are normal. Hematocrit 14, white count of 12. LFTs were normal. COVID-[address] scan of the neck, soft tissue was negative. ASSESSMENT/PLAN: Odynodysphagia: Differential diagnosis is extensive and could include functional GI disorder versus acute esophagitis versus zenker diverticulum versus stricture versus less likely neoplasm. At this point, we will continue on PPI as patient seems to be getting better. He is now able to eat. To document no obstruction we will check barium esophagram and consider for barium upper GI. Given the fact the patient is COVID-19 positive acutely not a good candidate for endoscopy unless urgent. Case reviewed with Jessica ESCOBEDO. Plan is agreed on and will follow for now. MARY HOOD M.D. CC:? Joy Siddiqui DO ADULT HIGH SCHOOL INSTRUCTOR ADULT HIGH SCHOOL INSTRUCTOR D I MT: Singh BUCK
[2020-11-19] VITALS (9 sets, daily range): BP systolic 99–122; BP diastolic 54–70; PULSE 66–93; RESP 16–18; TEMP 36.4–38.3; O2SAT 96–100
[2020-11-19 06:09] LABS: Hematocrit 34.3 % (42.0-52.0); Hemoglobin 11.4 g/dL (14.0-18.0); Immature Platelet Fraction Pct 11.3 % (0.9-11.2); Mean Corpuscular HGB Conc 33.2 g/dl (32-36); Mean Corpuscular Hemoglobin 29.2 pg (26-34); Mean Corpuscular Volume 87.7 fl (80-100); Mean Platelet Volume 11.4 fl (7.4-10.4); Platelet Count Result 58 k/mm3 (150-375); Red Blood Count 3.91 M/mm3 (4.6-6.20); Red Cell Distribution Width 11.8 % (11.5-14.5)
[2020-11-19 06:43] LABS: Alanine Aminotransferase 40 U/L (4-50); Albumin Level 3.3 g/dL (3.5-5.1); Alkaline Phosphatase 54 U/L (38-126); Anion Gap 8 mmol/L (8-16); Aspartate Amino Transferase 57 U/L (17-59); Bilirubin,Total 0.6 mg/dL (0.2-1.3); Blood Urea Nitrogen 18 mg/dL (9-20); CRP 8.8 mg/dL (<1.0); Calcium 8.6 mg/dL (8.4-10.2); Carbon Dioxide 29 mmol/L (22-30); Chloride 100 mmol/L (98-107); Estimated CRCL calculation 72 ml/min; Estimated Glomerular Filt Rate > 60; Glucose 92 mg/dL (75-110); Magnesium 1.7 mg/dL (1.6-2.3); Phosphorus 3.9 mg/dL (2.5-4.5); Potassium 3.3 mmol/L (3.4-5.0); Sodium 137 mmol/L (137-145)
[2020-11-19 06:49] LABS: Lactate Dehydrogenase 488 U/L (313-618)
[2020-11-19 08:38] LABS: Ferritin > 2000.00 ng/mL (17.9-464)
[2020-11-19] MEDS: POTASSIUM CHLORIDE 20 MEQ TABLET 40 MEQ PO (09:55)
[2020-11-19] MEDS: ACETAMINOPHEN 325 MG TABLET 650 MG PO (09:56)
[2020-11-19] MEDS: ASCORBIC ACID 125 MG TABLET PO (09:57)
[2020-11-19] MEDS: guaiFENesin 12 HR 600 MG TABCR PO ×2 (09:57→21:41)
[2020-11-19] MEDS: CHOLECALCIFEROL 1,000 UNITS TABLET 5000 UNITS PO (09:57)
[2020-11-19] MEDS: FLUTICASONE PROPIONATE 0.05% NA SPR 16 GM BTL (*BKC) 1 SPRAY NASAL ×2 (09:57→17:01)
[2020-11-19] MEDS: THERAPEUTIC MULTIVITAMINS/MINERALS TAB (*BKC) 1 TABLET PO (09:58)
[2020-11-19] MEDS: LORATADINE 10 MG TABLET PO (09:58)
[2020-11-19] MEDS: ZINC SULFATE 220 MG CAPSULE PO (09:58)
[2020-11-19] MEDS: SACCHAROMYCES BOULARDII 250 MG CAPSULE PO ×2 (09:58→17:01)
--- NOTE | 2020-11-19 11:59 | PM.IMPN ---
Progress Note: A&P Assessment and Plan (1) Sepsis: Code(s): A41.9 - Sepsis, unspecified organism Status: Acute Assessment and Plan: Present on admission supported by tachycardia, tachypnea, fever, and leukocytosis. He had elevated lactic acid upon presentation that normalized with IV fluids. Source is likely viral illness from COVID-19. Influenza and strep negative. T-max 102.8? and he is still having fevers today. Leukocytosis resolved and patient now leukopenic. Influenza negative. Strep negative. Preliminary blood culture show NGTD and final cultures will be monitored. IV antibiotics discontinued 11/17/20 as source is COVID-19 and secondary bacterial infection is unlikely. IV fluids discontinued as patient is tolerating PO intake Monitor electrolytes and vitals closely Acetaminophen as needed for fever (2) Pneumonia due to COVID-19 virus: Code(s): U07.1 - COVID-19; J12.89 - Other viral pneumonia Status: Acute Assessment and Plan: Onset of symptoms 11/13. CXR concerning for development of left lower lobe airspace disease. Denies COVID positive contacts. He reports cough and sputum production. He is maintaining adequate oxygen saturations on room air. Positive test on 11/16/20. Patient is febrile. Continue isolation precautions He is not a candidate for dexamethasone or remdesivir at this time as he does not have any supplemental oxygen requirements Supportive care to include antipyretics, bronchodilators, and expectorants. Continue vitamin C and Zinc per patient request Trend acute phase reactants IV ceftriaxone and azithromycin discontinued 11/18 as secondary bacterial pneumonia is unlikely (3) Dysphagia: Code(s): R13.10 - Dysphagia, unspecified Status: Acute Assessment and Plan: Patient reports dysphagia and odynophagia with both solids and liquids. CT neck is unremarkable and airway is patent. He is managing his oral secretions. Oropharynx exam unremarkable. He reports coughing up whole foods which has resolved. Esophageal stricture or Zenker's diverticulum is considered. He notes that dysphagia has improved and he ate his breakfast without significant difficulty. Barium esophagram was ordered and is pending. Gastroenterology has been consulted and input is appreciated. Patient will likely benefit from EGD due to regurgitation of solid foods. Appreciate GI input. Barium esophagram ordered and pending. Aspiration precautions in place Continue soft diet Do not feel that IV steroids are warranted as airway is patent and patient is managing secretions. (4) Malnutrition: Code(s): E46 - Unspecified protein-calorie malnutrition Status: Acute Assessment and Plan: Patient is severely malnourished with BMI of 16.1. He reports that he eats 2-3 eggs and 2 slices of bread per day. He has done this every day for 1 year. He reports eating 1700 calories per day. He is cachectic in appearance. Anorexia nervosa or bulimia nervosa is considered. HIV negative. Malignancy is not excludable however his history is nonspecific for specific area of concern. I feel that GI evaluation is most pertinent in ruling out pathologic process. He reports poor p.o. intake secondary to GI symptoms, stating that most foods cause him to have diarrhea. He is at risk for refeeding syndrome. Electrolytes are stable. Calprotectin for possible IBD, ROSE for possible autoimmune etiology, and Celiac panel were ordered and are pending. Manager Land has been consulted and recommendations appreciated. GI consult as above. Input appreciated. Monitor electrolytes closely. Magnesium slightly low 11/19 and he was given 2 g IV mag Continue probiotic Will check hepatitis panel Await additional study results (5) Thrombocytopenia: Code(s): D69.6 - Thrombocytopenia, unspecified Status: Acute Assessment and Plan: Patient has mild thrombocytopenia, li
[2020-11-19] MEDS: PANTOPRAZOLE SODIUM IV 40 MG VIAL IV PUSH (12:01)
[2020-11-19] MEDS: ALBUTEROL SULFATE (*SP) AEROSOL 1 PUFF 2 PUFF INHALATION (17:02)
--- NOTE | 2020-11-19 17:35 | PDONCCN ---
HPI - Date of Consult Date/Time: 11/19/20 17:35 Requesting Physician: Lizett Raymond PA-C Primary Care Provider: Joy Siddiqui, DO - Consult Narrative Reason for consult: Pancytopenia Narrative: Julio Mcneil is a 35 year old male with history of obsessive-compulsive disorder along with depression and anxiety. According to the patient he has a history of low blood count and has been seen by the tour escort 4 years ago and the workup was unrevealing accepted was thought to be due to liver disease. He denies any history of hepatitis. He also had a bone marrow biopsy done at that time. Patient came into the hospital with sudden no other point of dysphagia better enough to even swallow liquids. This happened just about 24 hours ago. He has been complaining of tiredness and generalized weakness. He lost 5-10 lb weight in last few months. He went to [facility] recently for complain of night sweats fever chills and sore throat. He report temperature of 102? at home. Denies any fevers and chills at this time. Labs on admission showed normal WBC count now dropped down to 1000. Platelets were also 72,000. He denies any bleeding and bruising. Review of Systems - Review of Systems All systems reviewed & are unremarkable except as noted in [facility] and [facility] Medical History: Medical History (Last Updated 11/16/20 @ 15:44 by Jessica Ryan PA-C) Anxiety Depression Hemorrhoids History of OCD (obsessive compulsive disorder) Irritable bowel syndrome Surgical History: Surgical History (Last Updated 11/15/20 @ 12:14 by OLIVER Dacosta) History of colonoscopy Family History: Family History (Last Updated 11/16/20 @ 16:19 by Jessica Ryan PA-C) Father Unknown family medical history Mother Alive and well Hyperthyroidism Other Hypothyroidism - Social History Social History: Social History (Last Updated 11/16/20 @ 15:46 by Jessica Ryan PA-C) Gender Identity: Gender identity (if verbalized by the patient): Male Alcohol Use: Alcohol intake: never Substance Use: Substance use: never Substance use type: does not use Others: Spiritual care concerns: No Smoking Status: Smoking status: Never smoker Tobacco type: cigarettes Second hand tobacco smoke exposure: No Meds Home Medications Medication Instructions Recorded Confirmed Type albuterol sulfate [ProAir HFA] 1 - 2 puff INHALATION QID #8.5 gm 11/15/20 11/16/20 Rx fluticasone propionate [Allergy 1 spray NASAL BID #16 ml 11/15/20 11/16/20 Rx Relief (fluticasone)] lidocaine HCl [Lidocaine Viscous] 1 applic MUCOUS MEM TID PRN #100 ml 11/15/20 11/16/20 Rx loratadine [Claritin] 10 mg PO DAILY 60 Days #60 tablet 11/15/20 11/16/20 Rx Allergies Allergy/AdvReac Type Severity Reaction Status Date / Time No Known Allergies Allergy Verified 11/16/20 15:08 Results - Labs CBC & Chem 7: 11/19/20 05:57 11/19/20 05:56 Labs: Short CBC 11/19/20 Range/Units 05:57 WBC 1.0 L* (4.5-10.0) K/mm3 Hgb 11.4 L (14.0-18.0) g/dL Hct 34.3 L (42.0-52.0) % Plt Count 58 L (150-375) k/mm3 BMP 11/19/20 05:56 Sodium 137 Potassium 3.3 L Chloride 100 Carbon Dioxide 29 BUN 18 Creatinine 0.90 Glucose 92 Calcium 8.6 Liver Function 11/19/20 Range/Units 05:56 Total Bilirubin 0.6 (0.2-1.3) mg/dL AST 57 (17-59) U/L ALT 40 (4-50) U/L Alkaline Phosphatase 54 (38-126) U/L Albumin 3.3 L (3.5-5.1) g/dL Assessment and Plan - Additional Plan Pancytopenia with profound leukopenia and thrombocytopenia. Patient is a 35-year-old male with history of depression anxiety and office of compulsive disorder. He had history of pancytopenia and was seen by a tour escort about 4 years ago when he had bone marrow biopsy done. According to the patient at that time he was told that his low blood count was secondary
[2020-11-19 18:32] LABS: Pneumococcal Antigen Urine Not Detected (Not Detected)
[2020-11-20] VITALS (8 sets, daily range): BP systolic 85–113; BP diastolic 49–63; PULSE 64–87; RESP 16–20; TEMP 36.8–37.5; O2SAT 96–100
[2020-11-20 04:11] LABS: Legionella pneumophila Ag Ur Not Detected (Not Detected)
[2020-11-20 06:20] LABS: Hematocrit 33.3 % (42.0-52.0); Hemoglobin 11.3 g/dL (14.0-18.0); Lymphocytes Absolute Auto 0.48 K/mm3 (0.9-3.2); Lymphocytes Percent Auto 46.6 % (18.3-44.2); Mean Corpuscular HGB Conc 33.9 g/dl (32-36); Mean Corpuscular Hemoglobin 29.3 pg (26-34); Mean Corpuscular Volume 86.3 fl (80-100); Mean Platelet Volume 12.3 fl (7.4-10.4); Monocytes Absolute Auto 0.1 K/mm3 (0.1-0.6); Monocytes Percent Auto 10.7 % (2.6-8.5); Neutrophils Absolute Auto 0.4 K/mm3 (1.3-6.7); Neutrophils Percent Auto 41.7 % (45.5-73.1); Platelet Count Result 70 k/mm3 (150-375); Red Blood Count 3.86 M/mm3 (4.6-6.20); Red Cell Distribution Width 11.7 % (11.5-14.5)
[2020-11-20 06:30] LABS: Prothrombin Time 13.5 Seconds (11.1-14.7)
[2020-11-20 06:31] LABS: Partial Thromboplastin Time 45.3 SECONDS (22.3-36.8)
[2020-11-20 06:51] LABS: Alanine Aminotransferase 44 U/L (4-50); Alkaline Phosphatase 52 U/L (38-126); Anion Gap 7 mmol/L (8-16); Aspartate Amino Transferase 59 U/L (17-59); Bilirubin,Total 0.4 mg/dL (0.2-1.3); Blood Urea Nitrogen 15 mg/dL (9-20); Calcium 8.5 mg/dL (8.4-10.2); Carbon Dioxide 27 mmol/L (22-30); Chloride 102 mmol/L (98-107); Estimated CRCL calculation 80 ml/min; Estimated Glomerular Filt Rate > 60; Glucose 99 mg/dL (75-110); Magnesium 1.6 mg/dL (1.6-2.3); Phosphorus 3.6 mg/dL (2.5-4.5); Potassium 4.2 mmol/L (3.4-5.0); Sodium 136 mmol/L (137-145)
[2020-11-20 07:18] LABS: Creatine Kinase 127 U/L (55-170); Lactate Dehydrogenase 547 U/L (313-618)
[2020-11-20 09:49] LABS: HAV RESULT Negative (Negative); Hepatitis B Core IgM Result Negative (Negative); Hepatitis B Surface Antigen Negative (Negative)
[2020-11-20 09:59] LABS: Hepatitis C Virus Antibody Negative (Negative)
[2020-11-20] MEDS: LORATADINE 10 MG TABLET PO (10:04)
[2020-11-20] MEDS: ASCORBIC ACID 125 MG TABLET PO (10:04)
[2020-11-20] MEDS: SACCHAROMYCES BOULARDII 250 MG CAPSULE PO ×2 (10:04→17:17)
[2020-11-20] MEDS: CHOLECALCIFEROL 1,000 UNITS TABLET 5000 UNITS PO (10:04)
[2020-11-20] MEDS: guaiFENesin 12 HR 600 MG TABCR PO ×2 (10:04→19:59)
[2020-11-20] MEDS: ZINC SULFATE 220 MG CAPSULE PO (10:04)
[2020-11-20] MEDS: THERAPEUTIC MULTIVITAMINS/MINERALS TAB (*BKC) 1 TABLET PO (10:05)
[2020-11-20] MEDS: PANTOPRAZOLE SODIUM IV 40 MG VIAL IV PUSH (10:05)
[2020-11-20] MEDS: FLUTICASONE PROPIONATE 0.05% NA SPR 16 GM BTL (*BKC) 1 SPRAY NASAL ×2 (10:05→17:18)
[2020-11-20] MEDS: BENZONATATE 100 MG CAPSULE 200 MG PO ×2 (10:09→17:17)
[2020-11-20] MEDS: ONDANSETRON INJ 4 MG/2 ML VIAL IV PUSH (10:56)
[2020-11-20 11:25] LABS: Ferritin > 2000.00 ng/mL (17.9-464)
--- NOTE | 2020-11-20 16:39 | WPDGIPROGNO ---
Subjective Date/time seen: MELISSA Dinero for Dr Cortez 20 Nov 2020 Per protocol patient was not seen to protect personal PPE. Per GREGG Phoenix, hospitalist that the patient is eating and drinking with no complaints at this time. Exam not performed to COVID precautions. ASSESSMENT/PLAN: A. Dysphagia -Functional GI disorder vs acute esophagitis vs Zenker vs stricture vs. EOE -wbc 1.o, hgb 11.3, hct 33, platelets 70 -CT soft tissue neck unremarkable -barium esophagram has not been performed -continue PPI -EGD outpatient with dilation and bx for EOE -oncology following for pancytopenia -no evidence of liver disease on abd US -LFTs normal Objective Data Vital Signs Vital Signs: Vital Signs - 24 hr 11/19/20 20:00 11/20/20 00:00 11/20/20 04:00 Temperature 37.3 C 37.3 C 37.1 C Pulse Rate 77 82 84 Respiratory Rate 16 16 16 Blood Pressure 113/54 L 105/52 L 103/55 L Pulse Oximetry 99 100 97 11/20/20 08:00 11/20/20 10:53 11/20/20 12:00 Temperature 37.5 C 36.9 C Pulse Rate 64 87 Respiratory Rate 18 20 Blood Pressure 108/60 113/63 Pulse Oximetry 99 96 99 Intake/Output Intake/Output: Intake & Output 11/17/20 11/18/20 11/19/20 11/20/20 23:59 23:59 23:59 23:59 Intake Total 3940 2060 2620 150 Output Total 7425 472 7681 300 Balance 2440 1460 120 -150 Meds/Results Medications: Active Medications Generic Name Dose Route Start Last Admin Trade Name Freq PRN Reason Stop Dose Admin Acetaminophen 650 mg 11/17/20 20:17 11/19/20 09:56 Acetaminophen 325 Mg Tablet PO 650 mg Q6H PRN Administration Mild Pain (1-3) or Fever Albuterol 2 puff 11/16/20 16:17 11/19/20 17:02 Albuterol Sulfate (*Sp) Aerosol 1 Puff INHALATION 2 puff Q6HRT PRN Administration Shortness Of Breath Ascorbic Acid 125 mg 11/18/20 09:00 11/20/20 10:04 Ascorbic Acid 125 Mg Tablet PO 125 mg QAM KELLY Administration Benzonatate 200 mg 11/17/20 18:12 11/20/20 10:09 Benzonatate 100 Mg Capsule PO 200 mg TID PRN Administration Cough Fluticasone Propionate 1 spray 11/16/20 17:00 11/20/20 10:05 Fluticasone Propionate 0.05% Na Spr 16 Gm Btl (*Bkc) NASAL 1 spray BID KELLY Administration Guaifenesin 600 mg 11/16/20 21:00 11/20/20 10:04 Guaifenesin 12 Hr 600 Mg Tabcr PO 600 mg Q12HR KELLY Administration Loratadine 10 mg 11/17/20 09:00 11/20/20 10:04 Loratadine 10 Mg Tablet PO 10 mg DAILY KELLY Administration Multivitamins/Calcium 1 tablet 11/18/20 09:00 11/20/20 10:05 Therapeutic Multivitamins/Minerals Tab (*Bkc) PO 1 tablet QAM KELLY Administration Ondansetron HCl 4 mg 11/20/20 10:39 11/20/20 10:56 Ondansetron Inj 4 Mg/2 Ml Vial IV PUSH 4 mg Q6H PRN Administration Nausea And Vomiting Pantoprazole Sodium 40 mg 11/17/20 09:00 11/20/20 10:05 Pantoprazole Sodium Iv 40 Mg Vial IV PUSH 40 mg QAM KELLY Administration Phenol 1 spray 11/16/20 15:53 11/18/20 12:38 Phenol/Sod Pheno [place] (*Bkc) MUCOUS MEM 1 spray PRN PRN Administration Sore Throat Saccharomyces Boulardii 250 mg 11/18/20 17:00 11/20/20 10:04 Saccharomyces Boulardii 250 Mg Capsule PO 250 mg BID KELLY Administration Vitamin D 5,000 units 11/19/20 09:00 11/20/20 10:04 Cholecalciferol 1,000 Units Tablet PO 5,000 units DAILY KELLY Administration Zinc Sulfate 220 mg 11/18/20 09:00 11/20/20 10:04 Zinc Sulfate 220 Mg Capsule PO 220 mg QAM KELLY Administration Radiology Results: ITS Impressions Chest X-Ray 11/16/20 08:50 IMPRESSION: Possible developing left lower lobe acute airspace disease, infection. Soft Tissue Neck CT 11/16/20 10:08 IMPRESSION: Unremarkable neck CT exam. Abdomen Ultrasound 11/20/20 11:06 IMPRESSION: 1. Spleen size upper limits of normal. Labs Labs: Laboratory Results - last 24 hr 11/16/20 11/20/20 11/20/20 20:41 05:53 05:53 WBC 1.0 L* RBC 3.86
--- NOTE | 2020-11-20 16:54 | PM.IMPN ---
Progress Note: A&P Assessment and Plan (1) Sepsis: Code(s): A41.9 - Sepsis, unspecified organism Status: Acute Assessment and Plan: Present on admission supported by tachycardia, tachypnea, fever, and leukocytosis. He had elevated lactic acid upon presentation that normalized with IV fluids. Source is likely viral illness from COVID-19. Influenza and strep negative. Leukocytosis resolved and patient now leukopenic. Influenza negative. Strep negative. Fevers have resolved with last fever 11/19/30 101.0F. Preliminary blood culture show NGTD and final cultures will be monitored. IV antibiotics discontinued 11/17/20 as source is COVID-19 and secondary bacterial infection is unlikely. IV fluids discontinued 11/19 as patient is tolerating PO intake Monitor electrolytes and vitals closely Acetaminophen as needed for fever (2) Pneumonia due to COVID-19 virus: Code(s): U07.1 - COVID-19; J12.89 - Other viral pneumonia Status: Acute Assessment and Plan: Onset of symptoms 11/13. CXR concerning for development of left lower lobe airspace disease. Denies COVID positive contacts. He reports cough and sputum production. He is maintaining adequate oxygen saturations on room air. Positive test on 11/16/20. Patient is febrile. Continue isolation precautions He is not a candidate for dexamethasone or remdesivir at this time as he does not have any supplemental oxygen requirements Supportive care to include antipyretics, bronchodilators, and expectorants. Continue vitamin C and Zinc per patient request Trend acute phase reactants. CRP is improving. IV ceftriaxone and azithromycin discontinued 11/18 as secondary bacterial pneumonia is unlikely (3) Dysphagia: Code(s): R13.10 - Dysphagia, unspecified Status: Acute Assessment and Plan: Patient reports dysphagia and odynophagia with both solids and liquids. CT neck is unremarkable and airway is patent. He is managing his oral secretions. Oropharynx exam unremarkable. He reports coughing up whole foods which has resolved. Esophageal stricture or Zenker's diverticulum is considered. His throat is a bit sore today but no trouble swallowing. Barium esophagram was ordered and is pending. Gastroenterology has been consulted and input is appreciated. Patient will likely benefit from EGD due to regurgitation of solid foods. Appreciate GI input. Barium esophagram ordered and still pending. He will need EGD outpatient with possible dilation and biopsies Aspiration precautions in place Continue soft diet Do not feel that IV steroids are warranted as airway is patent and patient is managing secretions. Check monospot given sore throat. Influenza negative. COVID positive. (4) Malnutrition: Code(s): E46 - Unspecified protein-calorie malnutrition Status: Acute Assessment and Plan: Patient is severely malnourished with BMI of 16.1. He reports that he eats 2-3 eggs and 2 slices of bread per day. He has done this every day for 1 year. He reports eating 1700 calories per day. He is cachectic in appearance. Anorexia nervosa or bulimia nervosa is considered. HIV negative. Malignancy is not excludable however his history is nonspecific for specific area of concern. I feel that GI evaluation is most pertinent in ruling out pathologic process. He reports poor p.o. intake secondary to GI symptoms, stating that most foods cause him to have diarrhea. He is at risk for refeeding syndrome. Electrolytes are stable. Calprotectin for possible IBD, ROSE for possible autoimmune etiology, and Celiac panel were ordered and are pending. Shaker Washer has been consulted and recommendations appreciated. GI consult as above. Input appreciated. Monitor electrolytes closely. Magnesium slightly low 11/19 and he was given 2 g IV mag Continue probiotic Hepatitis panel negative Await additional study results (5) Thrombocytopenia:
--- NOTE | 2020-11-20 17:30 | PC.NURSE ---
Notified Arlet Urrutia with follow up BP. New BP was 85/55 in both arms using automatic cuff. Pt appears asymptomatic. Asked him if he had times of dizziness when he stands. He says yes.Lizett says she is putting in new orders.
[2020-11-20] MEDS: SODIUM CHLORIDE 0.9% IV 500 ML IV CONT (17:40)
[2020-11-21] VITALS: BP 100/58; PULSE 95; RESP 16; TEMP 36.7; O2SAT 98
[2020-11-21 05:00] VITALS: BP 121/64; PULSE 65; RESP 16; TEMP 36.6; O2SAT 100
[2020-11-21 07:05] LABS: Basophils Percent Auto 0.5 % (0.2-1.2); Eosinophils Percent Auto 0.5 % (0-4.4); Hemoglobin 11.8 g/dL (14.0-18.0); Immature Granulocyte Absolute 0.01 K/mm3 (0.00-0.031); Immature Granulocyte Percent A 0.5 % (0-0.5); Immature Platelet Fraction Pct 9.8 % (0.9-11.2); Lymphocytes Absolute Auto 0.66 K/mm3 (0.9-3.2); Lymphocytes Percent Auto 35.7 % (18.3-44.2); Mean Corpuscular HGB Conc 33.7 g/dl (32-36); Mean Corpuscular Hemoglobin 29.4 pg (26-34); Mean Corpuscular Volume 87.3 fl (80-100); Mean Platelet Volume 11.7 fl (7.4-10.4); Monocytes Absolute Auto 0.2 K/mm3 (0.1-0.6); Monocytes Percent Auto 9.2 % (2.6-8.5); Neutrophils Percent Auto 53.6 % (45.5-73.1); Platelet Count Result 99 k/mm3 (150-375); Red Blood Count 4.01 M/mm3 (4.6-6.20); Red Cell Distribution Width 11.7 % (11.5-14.5)
[2020-11-21 07:09] LABS: White Blood Count 1.9 K/mm3 (4.5-10.0)
[2020-11-21 07:16] LABS: Transferrin 124 mg/dL (206-381)
[2020-11-21 07:30] LABS: Alanine Aminotransferase 62 U/L (4-50); Albumin Level 3.3 g/dL (3.5-5.1); Alkaline Phosphatase 56 U/L (38-126); Anion Gap 5 mmol/L (8-16); Aspartate Amino Transferase 74 U/L (17-59); Bilirubin,Total 0.4 mg/dL (0.2-1.3); Blood Urea Nitrogen 20 mg/dL (9-20); Calcium 8.5 mg/dL (8.4-10.2); Carbon Dioxide 29 mmol/L (22-30); Chloride 103 mmol/L (98-107); Estimated CRCL calculation 90 ml/min; Estimated Glomerular Filt Rate > 60; Glucose 99 mg/dL (75-110); Iron 83 ug/dL (49-181); Lactate Dehydrogenase 598 U/L (313-618); Magnesium 1.7 mg/dL (1.6-2.3); Potassium 4.5 mmol/L (3.4-5.0); Sodium 137 mmol/L (137-145)
[2020-11-21 07:38] LABS: CRP 2.5 mg/dL (<1.0)
[2020-11-21 07:40] LABS: Percent Iron Saturation 40 % (20-50)
[2020-11-21 07:43] LABS: Monoscreen Negative (Negative); Negative Monotest Control Negative (Negative); Positive Monotest Control Positive (Positive)
[2020-11-21 08:00] VITALS: BP 104/53; PULSE 66; RESP 18; TEMP 36.8; O2SAT 100
[2020-11-21] MEDS: SACCHAROMYCES BOULARDII 250 MG CAPSULE PO ×2 (09:26→17:37)
[2020-11-21] MEDS: PANTOPRAZOLE SODIUM IV 40 MG VIAL IV PUSH (09:26)
[2020-11-21] MEDS: ZINC SULFATE 220 MG CAPSULE PO (09:26)
[2020-11-21] MEDS: THERAPEUTIC MULTIVITAMINS/MINERALS TAB (*BKC) 1 TABLET PO (09:27)
[2020-11-21] MEDS: ASCORBIC ACID 125 MG TABLET PO (09:27)
[2020-11-21] MEDS: FLUTICASONE PROPIONATE 0.05% NA SPR 16 GM BTL (*BKC) 1 SPRAY NASAL ×2 (09:27→17:37)
[2020-11-21] MEDS: LORATADINE 10 MG TABLET PO (09:27)
[2020-11-21] MEDS: guaiFENesin 12 HR 600 MG TABCR PO ×2 (09:27→20:31)
[2020-11-21] MEDS: CHOLECALCIFEROL 1,000 UNITS TABLET 5000 UNITS PO (09:27)
--- NOTE | 2020-11-21 10:09 | PCDIET ---
Nutrition Follow-Up Complete: Underweight related to inadequate oral intake as evidence by BMI 16.1, daily report of eating only bread and eggs daily for a sustained period PO intake of 50% of meals to increase wt Goal:Progressing towards goal. Continue goal Pt current nutrition is regular Nutrition recommendation: agree Last recorded weight is 50.9 kg, recommend updated wt Bowel Motility: 3 BMs yesterday Labs Reviewed: Ferritin 1250, Fe 83, Transferrin 124, Albumin 3.3, Hgb/Hct 11.8/35.0 Meds Noted: S Hunter, Vitamin D, Zinc, Protonix, Zofran, MTV, Vit C Additional Notes: Pt is feeling much better today. He ate two eggs, rice, 2 beef broths, 2 oranges. Reports a lot os gas but no diarrhea. Agree with Huy Mendez and vitamins. Encouraged pt to continue to do some higher fodmap foods each evening and continue pre/probiotics for next year to help support microbiome diversity. Autoimmune labs still pending. We will continue to monitor for adequate intake and GI symptoms every five days.
--- NOTE | 2020-11-21 11:37 | WPDPN ---
Progress Note: A&P Assessment and Plan (1) Pneumonia due to COVID-19 virus: Code(s): U07.1 - COVID-19; J12.89 - Other viral pneumonia Status: Acute Assessment and Plan: Onset of symptoms 11/13. COVID test 11/16 positive. ordering CXR today Denies COVID positive contacts - not leaving home he says, but his mother and her boyfriend are both + covid. reports cough and sputum production. maintaining adequate oxygen saturations on room air. Patient is febrile on admission. Continue isolation precautions until Nov.26 or . Start and continue Remdesivir and steroids - as cough, throat pain, dyspnea, and tolerance for activity improved. Supportive care to include antipyretics, bronchodilators, and expectorants. Continue vitamin C and Zinc per patient request Trend acute phase reactants. Rechecking labs: CRP, LDH, Ferritin, CBC. IV ceftriaxone and azithromycin discontinued 11/18, but s/s and today's CXR warranted starting Zosyn. (2) Sepsis: Code(s): A41.9 - Sepsis, unspecified organism Status: Acute Assessment and Plan: RESOLVED. Present on admission supported by tachycardia, tachypnea, fever, and leukocytosis. had elevated lactic acid upon presentation that normalized with IV fluids. Source may be viral illness from COVID-19. Influenza and strep negative. Leukocytosis resolved and patient now leukopenic. Appreciate Principal Network Architect consultation. Influenza negative. Strep negative. Gregory negative. Hepatitis negative. HIV negative. Fevers have resolved with last fever 11/19/30 101.0F. Preliminary blood culture show NGTD and final cultures will be monitored. IV antibiotics discontinued 11/17/20 as source is COVID-19 and secondary bacterial infection is unlikely. 11/21 cough/chest congestion persist, CXR showed possible aspiratory pneumonia and/or CAP; IV zosyn started. IV fluids discontinued 11/19 as patient is tolerating PO intake Monitor electrolytes and vitals closely Acetaminophen as needed for fever (3) Dysphagia: Code(s): R13.10 - Dysphagia, unspecified Status: Acute Assessment and Plan: Patient reports dysphagia and odynophagia with both solids and liquids. CT neck is unremarkable and airway is patent. Oropharynx exam with erythema. reports coughing up whole foods which has resolved. Possiblities - Inflammation, esophageal thrush, thyroiditis, Esophageal stricture or Zenker's diverticulum is considered. Agree with Barium esophagram order - and as soon as patient off isolation, radiology dept. can proceed with Barium swallow. Gastroenterology has been consulted & agree with Barium swallow study. Patient may need an EGD as well (inpatient or outpatient with possible dilation and biopsies) continue steroids - as his throat and neck pain improved, and swallowing and eating improved. Continue soft diet Mon negative. Strep negative. Influenza negative. COVID positive. (4) Malnutrition: Code(s): E46 - Unspecified protein-calorie malnutrition Status: Acute Assessment and Plan: Calprotectin for possible IBD, ROSE for possible autoimmune etiology, and Celiac panel were ordered and are pending. Pattern Fitter has been consulted and recommendations appreciated. GI consult as above. Input appreciated. Monitor electrolytes closely. Magnesium slightly low 11/19 and he was given 2 g IV mag.Electrolytes are stable. Continue probiotic Hepatitis panel negative Await additional study results (5) Abnormal TSH: Code(s): R79.89 - Other specified abnormal findings of blood chemistry Status: Acute Assessment and Plan: TSH is low at <0.015 and T4 is mildly elevated at 3.09. related to malnourishment? possible thyroiditis (viral) Hyperthyroidism which may be contributing to some of his GI symptoms including diarrhea and malnutrition. No signs/sx to suggest thyroid storm. Patient may also have euthyroid sick syndrome in light of acute illness. Free T3 was ordered and is still pending Plan
[2020-11-21 12:00] VITALS: BP 104/63; PULSE 87; RESP 20; TEMP 36.7; O2SAT 100
--- NOTE | 2020-11-21 13:39 | WPDGIPROGNO ---
Progress Note: A&P Additional Plan GI Dana 21 Nov 2020 Per protocol patient was not seen to protect personal PPE and human resource. VSS Exam not performed to COVID precautions. Pertinent Labs/Imaging: WBC 1->1.9, Hgb 11->12 Assessment and Plan: Odynodysphagia: -Functional GI disorder vs acute esophagitis vs Zenker vs stricture vs. EOE -CT soft tissue neck unremarkable -Barium esophagram will not been performed due to CV-19 -Continue PPI, viscous lido -If symptoms persist EGD as outpatient with dilation and bx for EOE -Hematology following for pancytopenia -No evidence of liver disease on abd US -LFTs normal Case reviewed with Hospitalist Rea Kan. Thanks, [facility] [phone] Subjective Date/time seen: 11/21/20 13:39 Objective Data Vital Signs Vital Signs: Vital Signs - 24 hr 11/20/20 16:00 11/20/20 17:07 11/20/20 20:00 Temperature 36.9 C 36.8 C Pulse Rate 80 67 Respiratory Rate 20 16 Blood Pressure 89/49 L 85/55 L 100/54 L Pulse Oximetry 98 100 11/21/20 00:00 11/21/20 05:00 11/21/20 08:00 Temperature 36.7 C 36.6 C 36.8 C Pulse Rate 95 65 66 Respiratory Rate 16 16 18 Blood Pressure 100/58 L 121/64 104/53 L Pulse Oximetry 98 100 100 11/21/20 12:00 Temperature 36.7 C Pulse Rate 87 Respiratory Rate 20 Blood Pressure 104/63 Pulse Oximetry 100 Intake/Output Intake/Output: Intake & Output 11/18/20 11/19/20 11/20/20 11/21/20 23:59 23:59 23:59 23:59 Intake Total 2060 2620 1200 590 Output Total 600 2500 300 550 Balance 1460 120 900 40 Meds/Results Medications: Active Medications Generic Name Dose Route Start Last Admin Trade Name Freq PRN Reason Stop Dose Admin Acetaminophen 650 mg 11/17/20 20:17 11/19/20 09:56 Acetaminophen 325 Mg Tablet PO 650 mg Q6H PRN Administration Mild Pain (1-3) or Fever Albuterol 2 puff 11/16/20 16:17 11/19/20 17:02 Albuterol Sulfate (*Sp) Aerosol 1 Puff INHALATION 2 puff Q6HRT PRN Administration Shortness Of Breath Ascorbic Acid 125 mg 11/18/20 09:00 11/21/20 09:27 Ascorbic Acid 125 Mg Tablet PO 125 mg QAM KELLY Administration Benzonatate 200 mg 11/17/20 18:12 11/20/20 17:17 Benzonatate 100 Mg Capsule PO 200 mg TID PRN Administration Cough Dexamethasone 6 mg 11/22/20 08:00 Dexamethasone 2 Mg Tablet PO 12/01/20 08:01 DAILY@0800 KELLY Fluticasone Propionate 1 spray 11/16/20 17:00 11/21/20 09:27 Fluticasone Propionate 0.05% Na Spr 16 Gm Btl (*Bkc) NASAL 1 spray BID KELLY Administration Guaifenesin 600 mg 11/16/20 21:00 11/21/20 09:27 Guaifenesin 12 Hr 600 Mg Tabcr PO 600 mg Q12HR KELLY Administration Sodium Chloride 500 mls @ 250 mls/hr 11/21/20 13:27 Normal Saline Iv IV CONT 11/21/20 15:26 .Q2H ONE Loratadine 10 mg 11/17/20 09:00 11/21/20 09:27 Loratadine 10 Mg Tablet PO 10 mg DAILY KELLY Administration Multivitamins/Calcium 1 tablet 11/18/20 09:00 11/21/20 09:27 Therapeutic Multivitamins/Minerals Tab (*Bkc) PO 1 tablet QAM KELLY Administration Nystatin 5 ml 11/21/20 13:00 Nystatin 100,000 Units/Ml Susp 5 Ml Oral.Susp PO QID KELLY Ondansetron HCl 4 mg 11/20/20 10:39 11/20/20 10:56 Ondansetron Inj 4 Mg/2 Ml Vial IV PUSH 4 mg Q6H PRN Administration Nausea And Vomiting Pantoprazole Sodium 40 mg 11/17/20 09:00 11/21/20 09:26 Pantoprazole Sodium Iv 40 Mg Vial IV PUSH 40 mg QAM KELLY Administration Phenol 1 spray 11/16/20 15:53 11/18/20 12:38 Phenol/Sod Pheno [place] Artis (*Bkc) MUCOUS MEM 1 spray PRN PRN Administration Sore Throat Saccharomyces Boulardii 250 mg 11/18/20 17:00 11/21/20 09:26 Saccharomyces Boulardii 250 Mg Capsule PO 250 mg BID KELLY Administration Vitamin D 5,000 units 11/19/20 09:00 11/21/20 09:27 Cholecalciferol 1,000 Units Tablet PO 5,000 units DAILY KELLY Administration Zinc Sulfate 220 mg 11/18/20 09:00 11/21/20 09:26 Zinc Sulfate 220 Mg
[2020-11-21] MEDS: NYSTATIN 100,000 UNITS/ML SUSP 5 ML ORAL.SUSP PO ×3 (13:49→20:31)
[2020-11-21] MEDS: SODIUM CHLORIDE 0.9% IV 500 ML 250 ML IV CONT (13:49)
[2020-11-21 15:19] LABS: Alanine Aminotransferase 61 U/L (4-50)
[2020-11-21] MEDS: REMDESIVIR 200 MG/NS 250 ML 200 MG/250 ML BAG 250 MG IVPB (15:30)
[2020-11-21 16:00] VITALS: BP 118/57; PULSE 74; RESP 16; TEMP 36.6; O2SAT 98
--- NOTE | 2020-11-21 16:24 | PCSTNOTE ---
Please refer to the Bedside Swallow Evaluation in the EMR. Please note, silent aspiration cannot be ruled out at bedside.
[2020-11-21 20:00] VITALS: BP 107/51; PULSE 56; RESP 16; TEMP 37.1; O2SAT 100
[2020-11-22] VITALS: BP 94/50; PULSE 58; RESP 16; TEMP 36.9; O2SAT 98
[2020-11-22 04:00] VITALS: BP 101/57; PULSE 60; RESP 16; TEMP 36.9; O2SAT 100
[2020-11-22 07:11] LABS: Anion Gap 6 mmol/L (8-16); Blood Urea Nitrogen 16 mg/dL (9-20); Calcium 8.5 mg/dL (8.4-10.2); Carbon Dioxide 31 mmol/L (22-30); Chloride 101 mmol/L (98-107); Estimated CRCL calculation 72 ml/min; Estimated Glomerular Filt Rate > 60; Glucose 109 mg/dL (75-110); Potassium 3.9 mmol/L (3.4-5.0); Sodium 138 mmol/L (137-145)
[2020-11-22 07:13] LABS: Alanine Aminotransferase 76 U/L (4-50)
[2020-11-22 07:17] LABS: Hematocrit 35.7 % (42.0-52.0); Immature Platelet Fraction Pct 10.2 % (0.9-11.2); Mean Corpuscular HGB Conc 33.6 g/dl (32-36); Mean Corpuscular Hemoglobin 29.8 pg (26-34); Mean Corpuscular Volume 88.6 fl (80-100); Mean Platelet Volume 11.7 fl (7.4-10.4); Platelet Count Result 91 k/mm3 (150-375); Red Blood Count 4.03 M/mm3 (4.6-6.20); Red Cell Distribution Width 11.6 % (11.5-14.5)
[2020-11-22 07:23] LABS: White Blood Count 1.9 K/mm3 (4.5-10.0)
[2020-11-22 08:00] VITALS: BP 99/52; PULSE 70; RESP 16; TEMP 36.5; O2SAT 100
[2020-11-22 08:21] LABS: Gliadin AB, IgG 4 Units (<20); Reticulin IgA Negative (Negative); TTG IGA AB 1 U/mL (<4)
[2020-11-22] MEDS: BENZONATATE 100 MG CAPSULE 200 MG PO (08:45)
[2020-11-22] MEDS: PANTOPRAZOLE SODIUM IV 40 MG VIAL IV PUSH (08:45)
[2020-11-22] MEDS: NYSTATIN 100,000 UNITS/ML SUSP 5 ML ORAL.SUSP PO ×4 (08:45→20:53)
[2020-11-22] MEDS: guaiFENesin 12 HR 600 MG TABCR PO ×2 (08:46→20:53)
[2020-11-22] MEDS: CHOLECALCIFEROL 1,000 UNITS TABLET 5000 UNITS PO (08:46)
[2020-11-22] MEDS: DEXAMETHASONE 2 MG TABLET 6 MG PO (08:46)
[2020-11-22] MEDS: ASCORBIC ACID 125 MG TABLET PO (08:46)
[2020-11-22] MEDS: LORATADINE 10 MG TABLET PO (08:46)
[2020-11-22] MEDS: SACCHAROMYCES BOULARDII 250 MG CAPSULE PO ×2 (08:46→17:58)
[2020-11-22] MEDS: ZINC SULFATE 220 MG CAPSULE PO (08:46)
[2020-11-22] MEDS: THERAPEUTIC MULTIVITAMINS/MINERALS TAB (*BKC) 1 TABLET PO (08:47)
[2020-11-22] MEDS: FLUTICASONE PROPIONATE 0.05% NA SPR 16 GM BTL (*BKC) 1 SPRAY NASAL ×2 (09:15→17:59)
[2020-11-22] MEDS: REMDESIVIR 100 MG/NS 250 ML 100 MG/250 ML BAG 250 MG IVPB (11:00)
--- NOTE | 2020-11-22 11:07 | WPDGIPROGNO ---
Progress Note: A&P Additional Plan GI Dana 22 Nov 2020 Per protocol patient was not seen to protect personal PPE and human resource. VSS Exam not performed to COVID precautions. Pertinent Labs/Imaging: WBC 1->1.9, Hgb 11->12 Cr 0.9, CRP 2.5, Ferritin 1250, fe 83, tibc 208, %sat 40 B12 >1,000, folate >20. TBili 0.4, A/P 56, AST 74, ALT 62 Assessment and Plan: A. Odynodysphagia: -Functional GI disorder vs acute esophagitis vs Zenker vs stricture vs. EOE -CT soft tissue neck unremarkable -Barium esophagram will not been performed due to CV-19 -Continue PPI, viscous lido -If symptoms persist EGD as outpatient with dilation and bx for EOE -Hematology following for pancytopenia -No evidence of liver disease on abd US B. Mild anemia: - Labs non-diagnostic - Likely decreased production due to illness, hydration and phlebotomy C. Abnormal transaminases: - Likely related to illness - Follow-up as OP and consider further evaluation if they fail to resolve with resolution of illness CLARISA Pierce [phone] Subjective Date/time seen: 11/22/20 11:07 Objective Data Vital Signs Vital Signs: Vital Signs - 24 hr 11/21/20 12:00 11/21/20 16:00 11/21/20 20:00 Temperature 36.7 C 36.6 C 37.1 C Pulse Rate 87 74 56 L Respiratory Rate 20 16 16 Blood Pressure 104/63 118/57 L 107/51 L Pulse Oximetry 100 98 100 11/22/20 00:00 11/22/20 04:00 11/22/20 08:00 Temperature 36.9 C 36.9 C 36.5 C Pulse Rate 58 L 60 70 Respiratory Rate 16 16 16 Blood Pressure 94/50 L 101/57 L 99/52 L Pulse Oximetry 98 100 100 Intake/Output Intake/Output: Intake & Output 11/19/20 11/20/20 11/21/20 11/22/20 23:59 23:59 23:59 23:59 Intake Total 2620 1200 1730 650 Output Total 2500 300 1150 Balance 120 900 580 650 Meds/Results Medications: Active Medications Generic Name Dose Route Start Last Admin Trade Name Freq PRN Reason Stop Dose Admin Acetaminophen 650 mg 11/17/20 20:17 11/19/20 09:56 Acetaminophen 325 Mg Tablet PO 650 mg Q6H PRN Administration Mild Pain (1-3) or Fever Albuterol 2 puff 11/16/20 16:17 11/19/20 17:02 Albuterol Sulfate (*Sp) Aerosol 1 Puff INHALATION 2 puff Q6HRT PRN Administration Shortness Of Breath Ascorbic Acid 125 mg 11/18/20 09:00 11/22/20 08:46 Ascorbic Acid 125 Mg Tablet PO 125 mg QAM KELLY Administration Benzonatate 200 mg 11/17/20 18:12 11/22/20 08:45 Benzonatate 100 Mg Capsule PO 200 mg TID PRN Administration Cough Dexamethasone 6 mg 11/22/20 08:00 11/22/20 08:46 Dexamethasone 2 Mg Tablet PO 12/01/20 08:01 6 mg DAILY@0800 KELLY Administration Fluticasone Propionate 1 spray 11/16/20 17:00 11/21/20 17:37 Fluticasone Propionate 0.05% Na Spr 16 Gm Btl (*Bkc) NASAL 1 spray BID KELLY Administration Guaifenesin 600 mg 11/16/20 21:00 11/22/20 08:46 Guaifenesin 12 Hr 600 Mg Tabcr PO 600 mg Q12HR KELLY Administration Remdesivir 100 mg in 250 mls @ 250 mls/hr 11/22/20 10:00 IVPB 11/25/20 10:01 Q24H KELLY Piperacillin/Tazobactam/Dextrose 3.375 gm in 50 mls @ 100 mls/hr 11/21/20 14:35 11/22/20 07:00 Zosyn 3.375 Gm/D5w 50ml Pm IVPB Infused Q6HR KELLY Infusion Loratadine 10 mg 11/17/20 09:00 11/22/20 08:46 Loratadine 10 Mg Tablet PO 10 mg DAILY KELLY Administration Multivitamins/Calcium 1 tablet 11/18/20 09:00 11/22/20 08:47 Therapeutic Multivitamins/Minerals Tab (*Bkc) PO 1 tablet QAM KELLY Administration Nystatin 5 ml 11/21/20 13:00 11/22/20 08:45 Nystatin 100,000 Units/Ml Susp 5 Ml Oral.Susp PO 5 ml QID KELLY Administration Ondansetron HCl 4 mg 11/20/20 10:39 11/20/20 10:56 Ondansetron Inj 4 Mg/2 Ml Vial IV PUSH 4 mg Q6H PRN Administration Nausea And Vomiting Pantoprazole Sodium 40 mg 11/17/20 09:00 11/22/20 08:45 Pantoprazole Sodium Iv 40 Mg Vial IV PUSH 40 mg QAM KELLY Administration Phenol 1 spray 11/16/20 15:53 11/18/20 12:38 Phenol/Sod Pheno [place]
[2020-11-22 12:00] VITALS: BP 111/70; PULSE 64; RESP 16; TEMP 36.8; O2SAT 100
--- NOTE | 2020-11-22 14:37 | PM.IMPN ---
Progress Note: A&P Assessment and Plan (1) Sepsis: Code(s): A41.9 - Sepsis, unspecified organism Status: Acute Assessment and Plan: RESOLVED. Present on admission supported by tachycardia, tachypnea, fever, and leukocytosis. had elevated lactic acid upon presentation that normalized with IV fluids. Source is likely viral illness from COVID-19. Influenza and strep negative. Leukocytosis resolved and patient now leukopenic. Influenza negative. Strep negative. [place] negative. Hepatitis negative. HIV negative. Fevers have resolved with last fever 11/19/30 101.0F. Preliminary blood culture show NGTD and final cultures will be monitored. IV antibiotics discontinued 11/17/20 as source is COVID-19 and secondary bacterial infection is unlikely. 11/21 cough/chest congestion persist, CXR showed possible aspiratory pneumonia and/or CAP; IV zosyn started. IV fluids discontinued 11/19 as patient is tolerating PO intake Monitor electrolytes and vitals closely Acetaminophen as needed for fever (2) Pneumonia due to COVID-19 virus: Code(s): U07.1 - COVID-19; J12.89 - Other viral pneumonia Status: Acute Assessment and Plan: Onset of symptoms 11/13. COVID test 11/16 positive. CXR concerning for development of left lower lobe airspace disease. with repeat 11/21 CXR worse. Denies COVID positive contacts - not leaving home he says, but his mother and her boyfriend are both + covid. reports cough and sputum production. maintaining adequate oxygen saturations on room air. Patient is febrile on admission. Continue isolation precautions until Nov.26 or . Continue Remdesivir and steroids - as cough, throat pain, dyspnea, and tolerance for activity improved. Supportive care to include antipyretics, bronchodilators, and expectorants. Continue vitamin C and Zinc per patient request Trend acute phase reactants. Rechecking labs tomorrow morning: CRP, LDH, Ferritin, CBC. IV ceftriaxone and azithromycin discontinued 11/18, but s/s and 11/21 CXR warranted starting Zosyn. (3) Dysphagia: Code(s): R13.10 - Dysphagia, unspecified Status: Acute Assessment and Plan: Patient reports dysphagia and odynophagia with both solids and liquids. CT neck is unremarkable and airway is patent. Oropharynx exam with erythema. reports coughing up whole foods which has resolved. Possiblities - Inflammation, esophageal thrush, thyroiditis, Esophageal stricture or Zenker's diverticulum is considered. Agree with Barium esophagram order - and as soon as patient off isolation, radiology dept. can proceed with Barium swallow. Gastroenterology has been consulted & agree with Barium swallow study. Patient may need an EGD as well (inpatient or outpatient with possible dilation and biopsies) continue steroids - as his throat and neck pain improved, and swallowing and eating improved. Continue soft diet Mon negtive. Strep negative. Influenza negative. COVID positive. (4) Malnutrition: Code(s): E46 - Unspecified protein-calorie malnutrition Status: Acute Assessment and Plan: Patient is severely malnourished with BMI of 16.1. He reports that he eats 2-3 eggs and 2 slices of bread per day. He has done this every day for 1 year. He reports eating 1700 calories per day. He is cachectic in appearance. Anorexia nervosa or bulimia nervosa is considered. HIV negative. Malignancy is not excludable however his history is nonspecific for specific area of concern. I feel that GI evaluation is most pertinent in ruling out pathologic process. He reports poor p.o. intake secondary to GI symptoms, stating that most foods cause him to have diarrhea. He is at risk for refeeding syndrome. Electrolytes are stable. Calprotectin for possible IBD, ROSE for possible autoimmune etiology, and Celiac panel were ordered and are pending. Stock Taker has been consulted and recommendations appreciated. GI consult as above.
[2020-11-22 16:00] VITALS: BP 105/48; PULSE 67; RESP 18; TEMP 36.8; O2SAT 95
[2020-11-22 18:25] LABS: Methylmalonic Acid 108 nmol/L (87-318)
[2020-11-22 20:00] VITALS: BP 104/53; PULSE 72; RESP 20; TEMP 36.6; O2SAT 95
[2020-11-22 20:41] LABS: Platelet Antibody, Direct IgG POSITIVE (NEGATIVE)
--- NOTE | 2020-11-22 21:28 | PC.NURSE ---
Pt states he food trial at dinner did not go well. states he belives the fruit may have caused some diarrhea.
[2020-11-23] VITALS (7 sets, daily range): BP systolic 101–115; BP diastolic 57–64; PULSE 49–75; RESP 16–20; TEMP 36.2–36.8; O2SAT 100
[2020-11-23 06:04] LABS: Triiodothyronine T3 Free 3.1 pg/mL (2.3-4.2)
[2020-11-23 06:31] LABS: Hematocrit 36.2 % (42.0-52.0); Hemoglobin 11.8 g/dL (14.0-18.0); Immature Platelet Fraction Pct 9.1 % (0.9-11.2); Mean Corpuscular HGB Conc 32.6 g/dl (32-36); Mean Corpuscular Hemoglobin 28.2 pg (26-34); Mean Corpuscular Volume 86.6 fl (80-100); Mean Platelet Volume 11.5 fl (7.4-10.4); Platelet Count Result 130 k/mm3 (150-375); Red Blood Count 4.18 M/mm3 (4.6-6.20); Red Cell Distribution Width 11.4 % (11.5-14.5)
[2020-11-23 06:48] LABS: Lactate Dehydrogenase 452 U/L (313-618)
[2020-11-23 07:31] LABS: Alanine Aminotransferase 84 U/L (4-50); Albumin Level 3.5 g/dL (3.5-5.1); Alkaline Phosphatase 52 U/L (38-126); Anion Gap 4 mmol/L (8-16); Aspartate Amino Transferase 67 U/L (17-59); Bilirubin,Total 0.4 mg/dL (0.2-1.3); Blood Urea Nitrogen 20 mg/dL (9-20); CRP 1.1 mg/dL (<1.0); Calcium 8.9 mg/dL (8.4-10.2); Carbon Dioxide 34 mmol/L (22-30); Chloride 100 mmol/L (98-107); Estimated CRCL calculation 80 ml/min; Estimated Glomerular Filt Rate > 60; Glucose 111 mg/dL (75-110); Potassium 4.4 mmol/L (3.4-5.0); Sodium 138 mmol/L (137-145)
[2020-11-23] MEDS: DEXAMETHASONE 2 MG TABLET 6 MG PO (09:08)
[2020-11-23] MEDS: guaiFENesin 12 HR 600 MG TABCR PO (09:08)
[2020-11-23] MEDS: PANTOPRAZOLE SODIUM IV 40 MG VIAL IV PUSH (09:08)
[2020-11-23] MEDS: NYSTATIN 100,000 UNITS/ML SUSP 5 ML ORAL.SUSP PO ×3 (09:08→16:42)
[2020-11-23] MEDS: SACCHAROMYCES BOULARDII 250 MG CAPSULE PO ×2 (09:08→16:42)
[2020-11-23] MEDS: FLUTICASONE PROPIONATE 0.05% NA SPR 16 GM BTL (*BKC) 1 SPRAY NASAL ×2 (09:09→16:42)
[2020-11-23] MEDS: BENZONATATE 100 MG CAPSULE 200 MG PO (09:16)
--- NOTE | 2020-11-23 10:55 | WPDGIPROGNO ---
Progress Note: A&P Additional Plan GI Dana 23 Nov 2020 Per protocol patient was not seen to protect personal PPE and human resource. VSS Exam not performed to COVID precautions. Pertinent Labs/Imagin11-23-2020: Hct 36, WBC 3. TB 0.4, A/P 52, AST 67, ALT 84. CRP 1.1 WBC 1->1.9, Hgb 11->12 Cr 0.9, CRP 2.5, Ferritin 1250, fe 83, tibc 208, %sat 40 B12 >1,000, folate >20. TBili 0.4, A/P 56, AST 74, ALT 62 HIV, Hepatitis screen, Monospot negative. Assessment and Plan: A. Odynodysphagia: -Functional GI disorder vs acute esophagitis vs Zenker vs stricture vs. EOE -CT soft tissue neck unremarkable -Barium esophagram will not been performed due to CV-19 -Continue PPI, viscous lido -If symptoms persist EGD as outpatient with dilation and bx for EOE -Hematology following for pancytopenia; improved -No evidence of liver disease on abd US B. Mild anemia: - Labs non-diagnostic - Likely decreased production due to illness, hydration and phlebotomy C. Abnormal transaminases: - Likely related to illness - Follow-up as OP and consider further evaluation if they fail to resolve with resolution of illness Case discussed with GRE[facility] [place]. No further GI recommendations at this time. OK with me for discharge. Patient to follow-up with Dr. Billy Moreira in 2-3 weeks. Thanks, [facility] [phone] Cc: Dr. Keren Siddiqui; Dr. Billy Moreira Subjective Date/time seen: 11/23/20 10:55 Objective Data Vital Signs Vital Signs: Vital Signs - 24 hr 11/22/20 12:00 11/22/20 16:00 11/22/20 20:00 Temperature 36.8 C 36.8 C 36.6 C Pulse Rate 64 67 72 Respiratory Rate 16 18 20 Blood Pressure 111/70 105/48 L 104/53 L Pulse Oximetry 100 95 95 11/23/20 00:00 11/23/20 00:40 11/23/20 00:41 Temperature 36.6 C Pulse Rate 62 71 75 Respiratory Rate 20 Blood Pressure 114/63 109/59 L 114/59 L Pulse Oximetry 100 100 100 11/23/20 04:00 11/23/20 08:00 Temperature 36.8 C 36.2 C L Pulse Rate 49 L 69 Respiratory Rate 16 16 Blood Pressure 111/60 101/57 L Pulse Oximetry 100 100 Intake/Output Intake/Output: Intake & Output 11/20/20 11/21/20 11/22/20 11/23/20 23:59 23:59 23:59 23:59 Intake Total 1200 1730 2700 850 Output Total 300 1150 100 Balance 536 144 7344 850 Meds/Results Medications: Active Medications Generic Name Dose Route Start Last Admin Trade Name Freq PRN Reason Stop Dose Admin Acetaminophen 650 mg 11/17/20 20:17 11/19/20 09:56 Acetaminophen 325 Mg Tablet PO 650 mg Q6H PRN Administration Mild Pain (1-3) or Fever Albuterol 2 puff 11/16/20 16:17 11/19/20 17:02 Albuterol Sulfate (*Sp) Aerosol 1 Puff INHALATION 2 puff Q6HRT PRN Administration Shortness Of Breath Ascorbic Acid 125 mg 11/23/20 12:00 Ascorbic Acid 125 Mg Tablet PO QAM KELLY Benzonatate 200 mg 11/17/20 18:12 11/23/20 09:16 Benzonatate 100 Mg Capsule PO 200 mg TID PRN Administration Cough Dexamethasone 6 mg 11/22/20 08:00 11/23/20 09:08 Dexamethasone 2 Mg Tablet PO 12/01/20 08:01 6 mg DAILY@0800 KELLY Administration Fluticasone Propionate 1 spray 11/16/20 17:00 11/23/20 09:09 Fluticasone Propionate 0.05% Na Spr 16 Gm Btl (*Bkc) NASAL 1 spray BID KELLY Administration Guaifenesin 600 mg 11/16/20 21:00 11/23/20 09:08 Guaifenesin 12 Hr 600 Mg Tabcr PO 600 mg Q12HR KELLY Administration Piperacillin/Tazobactam/Dextrose 3.375 gm in 50 mls @ 100 mls/hr 11/21/20 14:35 11/23/20 06:26 Zosyn 3.375 Gm/D5w 50ml Pm IVPB Infused Q6HR KELLY Infusion Loratadine 10 mg 11/23/20 12:00 Loratadine 10 Mg Tablet PO DAILY KELLY Multivitamins/Calcium 1 tablet 11/23/20 12:00 Therapeutic Multivitamins/Minerals Tab (*Bkc) PO QAM KELLY Nystatin 5 ml 11/21/20 13:00 11/23/20 09:08 Nystatin 100,000 Units/Ml Susp 5 Ml Oral.Susp PO 5 ml QID KELLY Administration Ondansetron HCl 4 mg 11/20/20 10:39 11/20/20 10:56 Ondansetron Inj 4 Mg/2 Ml Vial IV PUSH 4 mg Q6H
--- NOTE | 2020-11-23 11:08 | PC.NURSE ---
Called to pt room 1050 by pt . C/O tooth on left upper side of mouth broke. Assessed pt . no bleeding noted. Pt didnt complain of pain at that time. Will continue to monitor. Broken piece of tooth placed in small bag for pt.
[2020-11-23] MEDS: LORATADINE 10 MG TABLET PO (12:14)
[2020-11-23] MEDS: ASCORBIC ACID 125 MG TABLET PO (12:14)
[2020-11-23] MEDS: ZINC SULFATE 220 MG CAPSULE PO (12:14)
[2020-11-23] MEDS: THERAPEUTIC MULTIVITAMINS/MINERALS TAB (*BKC) 1 TABLET PO (12:14)
[2020-11-23] MEDS: CHOLECALCIFEROL 1,000 UNITS TABLET 5000 UNITS PO (12:15)
[2020-11-23] MEDS: ACETAMINOPHEN 325 MG TABLET 650 MG PO (12:15)
--- NOTE | 2020-11-23 13:47 | PM.DS ---
DS: Admitting Diagnosis Admitting Diagnosis Admitting Diagnosis: Sepsis, dysphagia, malnutrition DS: Discharge Diagnosis Discharge Diagnosis (1) Pneumonia due to COVID-19 virus: Code(s): U07.1 - COVID-19; J12.89 - Other viral pneumonia Status: Acute Assessment and Plan: Discharge Summary (Date of service 11/23/20): Mr. Mcneil is a 35 y.o. male with PMH significant for obsessive-compulsive disorder, depression, anxiety, and likely IBS who presented to the emergency department on 11/16/2020 for the evaluation of several complaints including chills and sweats for 1 week, sore throat, tension headache for 24 hr which resolved, and dysphagia with liquids and solids. He also reported fever, cough productive of white sputum and congestion. Initial workup in the emergency department included CT soft tissue neck which was unremarkable and CXR which showed developing left lower airspace disease. He was treated with empiric ceftriaxone and azithromycin for pneumonia and admitted to the hospitalist service. SARS-CoV-2 testing was positive 11/16/20 so IV antibiotics were discontinued. He remained on room air and did not require supplemental oxygen. He was treated with one dose of remdesivir 11/21 but this was not continued since he was never hypoxic. IV zosyn was initiated 11/21 given repeat CXR findings showing interval increase in focal airspace opacity in the left lower lobe concerning for progression of pneumonia, atypical for COVID-19 and suspicious for community acquired vs aspiration pneumonia. He was evaluated by DIRECTOR MORTGAGE and swallow was felt normal without evidence of aspiration. Gastroenterology was consulted given his dysphagia, malnourishment, and diarrhea and recommended EGD outpatient with possible dilation and biopsies as well as barium esophagram outpatient. His dysphagia resolved and his sore throat improved significantly. Patient was severely malnourished with BMI of 16.1. He reported that he eats 2-3 eggs and 2 slices of bread per day. He has done this every day for 1 year. He reports eating 1700 calories per day. He is cachectic in appearance. Anorexia nervosa or bulimia nervosa was considered. HIV testing and hepatitis panel were negative. Malignancy is not excludable however his history is nonspecific for specific area of concern. GI evaluation is most pertinent given his presenting complaints and he will need EGD and barium swallow outpatient. He also reported poor p.o. intake secondary to GI symptoms, stating that most foods cause him to have diarrhea, and will need to continue outpatient follow-up with GI. Calprotectin was ordered and was borderline at 115 for possible IBD. ROSE was negative. Celiac panel was negative. Recommend repeat calprotectin lab outpatient per his PCP in 4-6 weeks. He can also follow-up with GI as well for further evaluation for possible IBD vs IBS. If his weight does not improve with improved nutrition, he will need further workup outpatient to evaluate for underlying malignancy per his PCP. He will also need to follow-up with hematology/oncology. He did develop pancytopenia while inpatient, possibly secondary to COVID-19. Dr. Cummins with hematology/oncology was consulted. Platelet count dropped as low as 58,000. Lovenox was discontinued 11/17 given thrombocytopenia. Direct platelet bound antibody which was ordered by Dr. Cummins with hematology/oncology was positive. Platelet count improved with steroid therapy and a slow prednisone taper was continued at discharge per Dr. Cummins's recommendations. He will need repeat CBC in 1 week and needs to see Dr. Cummins outpatient for further evaluation/management. Platelet count improved to 130,000 the day of discharge. He was doing much better overall. He was tolerating p.o. intake well and had no further nausea or vomiting. His dyspnea and cough improved. He was discharged in hemodynamically stable condition on the evening of 11/23/20. Close outpatient follow-up was recommended. He also asked t
--- NOTE | 2020-11-23 16:06 | PC.NURSE ---
Notified [facility] Phoenix of abnormal urine culture.
[2020-11-24 09:11] LABS: Soluble Transferrin Receptor 0.78 mg/L (0.76-1.76)
[2020-11-29 00:26] LABS: Calprotectin, Stool 115 mcg/g
== END 2020-11-23 17:30 | disposition home or self-care (01) | DRG 720 ==
LOC: ANHED 13:56 → ANH3MEDSUR 14:03
PROVIDERS: Internal Medicine Hematology & Oncology; Nurse Practitioner; Physician Assistant; Admitting Provider Internal Medicine; Emergency Provider General Practice; PCP Family Medicine; Visit Provider Physician Assistant
DX: A41.89 Other specified sepsis (principal); U07.1 COVID-19; J12.82 Pneumonia due to coronavirus disease 2019; F42.9 Obsessive-compulsive disorder, unspecified; F41.8 Other specified anxiety disorders; K58.9 Irritable bowel syndrome, unspecified; R13.10 Dysphagia, unspecified; E43 Unspecified severe protein-calorie malnutrition; Z68.1 Body mass index [BMI] 19.9 or less, adult; D61.818 Other pancytopenia
CPT/HCPCS: 36415; 70491; 71045; 76705; 80048; 80053; 80074; 81001; 82550; 82607; 82728; 82746; 83516; 83540; 83550; 83605; 83615; 83690; 83735; 83921; 83993; 84100; 84238; 84439; 84443; 84460; 84466; 84481; 85025; 85027; 85055; 85610; 85730; 86023; 86038; 86140; 86255; 86308; 86703; 87040; 87077; 87086; 87088; 87186; 87449; 87635; 87899; 92610; 93005; 94640; 96361; 96365; 96367; 96372; 96375; 96376; 97110; 97161; 99285; A9270; C9113; C9803; G0378; G0379; G0432; J0456; J0696; J1650; J2405; J2543; J3475; J7030; J7040; J7120; J8540; Q9967; U0003

== ENCOUNTER 2020-12-09 14:19 | Outpatient (CLI) | payer OTHER, SELFPAY ==
--- NOTE | ~2020-12-09 | US_ITS ---
EXAMINATION: US thyroid DATE: 12/09/2020 14:53 INDICATION: Thyrotoxicosis TECHNIQUE: Multiple ultrasound images of the thyroid were obtained. COMPARISON: None. FINDINGS: The right thyroid lobe measures 4.6 x 2.4 x 1.3 cm. The left thyroid lobe measures 4.0 x 1.7 x 1.0 c m. No discrete nodules identified. There is normal echotexture and echogenicity throughout the thyro id gland. Mildly prominent vascular flow throughout the thyroid on color Doppler. IMPRESSION: 1. Mildly prominent vascular flow on color Doppler throughout the otherwise normal-appearing thyroid which could be seen with thyroiditis. Reviewed, dictated and finalized at location A. USSION INSTRUMENT TUNER IMPRESSION: 1. Mildly prominent vascular flow on color Doppler throughout the otherwise nor mal-appearing thyroid which could be seen with thyroiditis.
== END 2020-12-09 14:20 | disposition home or self-care (01) ==
PROVIDERS: PCP Family Medicine; Visit Provider Family Medicine
DX: E05.90 Thyrotoxicosis, unspecified without thyrotoxic crisis or storm (principal)
CPT/HCPCS: 76536

== ENCOUNTER 2020-12-10 10:26 | Outpatient (CLI) | payer OTHER, SELFPAY ==
[2020-12-10 10:42] LABS: Basophils Percent Auto 0.2 % (0.2-1.2); Eosinophils Absolute Auto 0.1 K/mm3 (0-0.3); Eosinophils Percent Auto 0.5 % (0-4.4); Hematocrit 37.8 % (42.0-52.0); Hemoglobin 12.3 g/dL (14.0-18.0); Immature Granulocyte Absolute 0.05 K/mm3 (0.00-0.031); Immature Granulocyte Percent A 0.5 % (0-0.5); Lymphocytes Absolute Auto 0.78 K/mm3 (0.9-3.2); Lymphocytes Percent Auto 8.2 % (18.3-44.2); Mean Corpuscular HGB Conc 32.5 g/dl (32-36); Mean Corpuscular Hemoglobin 29.7 pg (26-34); Mean Corpuscular Volume 91.3 fl (80-100); Mean Platelet Volume 9.4 fl (7.4-10.4); Monocytes Absolute Auto 0.4 K/mm3 (0.1-0.6); Monocytes Percent Auto 3.7 % (2.6-8.5); Neutrophils Absolute Auto 8.3 K/mm3 (1.3-6.7); Neutrophils Percent Auto 86.9 % (45.5-73.1); Platelet Count Result 122 k/mm3 (150-375); Red Blood Count 4.14 M/mm3 (4.6-6.20); Red Cell Distribution Width 14.4 % (11.5-14.5); White Blood Count 9.5 K/mm3 (4.5-10.0)
[2020-12-10 13:06] LABS: Alanine Aminotransferase 37 U/L (4-50); Albumin Level 3.9 g/dL (3.5-5.1); Alkaline Phosphatase 50 U/L (38-126); Anion Gap 5 mmol/L (8-16); Aspartate Amino Transferase 26 U/L (17-59); Bilirubin,Total 0.5 mg/dL (0.2-1.3); Blood Urea Nitrogen 27 mg/dL (9-20); Carbon Dioxide 30 mmol/L (22-30); Chloride 100 mmol/L (98-107); Estimated Glomerular Filt Rate > 60; Glucose 101 mg/dL (75-110); Potassium 4.7 mmol/L (3.4-5.0); Sodium 135 mmol/L (137-145)
== END 2020-12-10 10:27 | disposition home or self-care (01) ==
PROVIDERS: PCP Family Medicine; Visit Provider Internal Medicine Hematology & Oncology
DX: D69.6 Thrombocytopenia, unspecified (principal)
CPT/HCPCS: 36415; 80053; 85025

== ENCOUNTER 2020-12-19 14:26 | Outpatient (RCR) | payer OTHER, SELFPAY ==
[2020-12-19 15:17] VITALS: BMI 18.1
[2020-12-19 15:18] VITALS: BMI 18.1
== END 2021-03-10 14:36 | disposition home or self-care (01) ==
LOC: ANHDMC 14:26
PROVIDERS: PCP Family Medicine; Visit Provider Family Medicine
DX: E63.9 Nutritional deficiency, unspecified (principal); R64 Cachexia; Z71.3 Dietary counseling and surveillance
CPT/HCPCS: 97802

== ENCOUNTER 2020-12-20 07:57 | Outpatient (CLI) | payer OTHER, SELFPAY ==
--- NOTE | ~2020-12-20 | XR_ITS ---
EXAMINATION: XR chest 2V DATE: 12/20/2020 09:15 INDICATION: COVID-19 pneumonia. TECHNIQUE: Frontal and lateral views of the chest were obtained. COMPARISON: Chest single view 11/21/2020 FINDINGS: The chest demonstrates clear lungs without pneumonia, pleural effusion, or pneumothorax. Th e heart size is normal. Calcified left hilar lymph nodes are consistent with old granulomatous diseas e. There is mild pectus excavatum. IMPRESSION: 1. No acute cardiopulmonary disease. Reviewed, dictated and finalized at location A. T WORKER
--- NOTE | 2020-12-20 08:08 | ECHO_ITS ---
Patient Info Name: Julio Mcneil Age: 35 years : 1985 Gender: Male Ht: 70 in Wt: 126 lbs BSA: 1.67 m2 HR: 68 bpm BP: 109 / 69 mmHg Technical Quality: Fair Exam Date: 12/20/2020 8:23 AM Exam Location: [facility] Patient Status: Outpatient Admit Date: 12/20/2020 Staff Ordering Physician: Joy Siddiqui DO [place] Operator: Myla Gruber RDCS Attending Provider: Joy Siddiqui DO Referring Physician: Narciso Cummins MD; Exam Type: CA echo doppler color flow Study Info Indications R01.1 - Cardiac murmur, unspecified Complete two-dimensional, color flow and Doppler transthoracic echocardiogram is performed. Summary 1. Complete two-dimensional, color flow and Doppler transthoracic echocardiogram is performed. 2. Left ventricular chamber dimension is normal. 3. Left ventricular systolic function is normal, estimated at 60-65%. 4. The left ventricular diastolic function is normal. 5. No pulmonary hypertension, estimated pulmonary arterial systolic pressure is 32 mmHg. 6. Normal inferior vena cava with <50% collapse upon inspiration consistent with elevated right atrial pressure, 10 mmHg. 7. There is mild-moderate right sided pericardial effusion seen only in subcostal image. Left Ventricle Tissue doppler is not performed. Left ventricular chamber dimension is normal. Left ventricular systolic function is normal, estimated at 60-65%. The left ventricular diastolic function is normal. Right Ventricle Right ventricular chamber dimension is normal. Right ventricular systolic function is normal. Left Atria Left atrial chamber dimension is normal. Right Atria Right atrial chamber dimension is normal. Aortic Valve The aortic valve is trileaflet. There is no aortic valve stenosis. There is no aortic valve regurgitation. Pulmonic Valve There is no pulmonic regurgitation. Mitral Valve There is no mitral valve stenosis. There is no mitral valve regurgitation. Tricuspid Valve There is no tricuspid valve regurgitation. No pulmonary hypertension, estimated pulmonary arterial systolic pressure is 32 mmHg. Pericardium/Pleural There is mild-moderate right sided pericardial effusion seen only in subcostal image. Inferior Vena Cava Normal inferior vena cava with <50% collapse upon inspiration consistent with elevated right atrial pressure, 10 mmHg. Aorta The aortic root size at the sinus of Valsalva is normal. Left Ventricular Outflow Tract Name Value Normal LVOT 2D LVOT Diameter 2.0 cm LVOT Doppler LVOT Peak Gradient 4 mmHg LVOT Mean Gradient 3 mmHg LVOT VTI 22 cm LVOT VTI/AV VTI Ratio 1.0 LVOT Stroke Volume 72 ml LVOT CO 5.0 l/min LVOT CI 3.0 l/min/m2 Pulmonic Valve Name Value Normal
[2020-12-20 10:27] LABS: Thyroid Stimulating Hormone < 0.015 uIU/mL (0.465-4.680)
[2020-12-24 05:55] LABS: Triiodothyronine T3 Free 5.3 pg/mL (2.3-4.2)
== END 2020-12-20 07:58 | disposition home or self-care (01) ==
PROVIDERS: PCP Family Medicine; Referring Provider Internal Medicine Hematology & Oncology; Visit Provider Family Medicine
DX: E05.90 Thyrotoxicosis, unspecified without thyrotoxic crisis or storm (principal); R01.1 Cardiac murmur, unspecified; J12.89 Other viral pneumonia; U07.1 COVID-19; D69.6 Thrombocytopenia, unspecified
CPT/HCPCS: 36415; 71046; 84439; 84443; 84481; 93306

== ENCOUNTER 2021-01-22 13:00 | Outpatient (CLI) | payer OTHER, SELFPAY ==
[2021-01-22 13:11] LABS: Hematocrit 37.1 % (42.0-52.0); Hemoglobin 12.7 g/dL (14.0-18.0); Mean Corpuscular HGB Conc 34.2 g/dl (32-36); Mean Corpuscular Hemoglobin 30.3 pg (26-34); Mean Corpuscular Volume 88.5 fl (80-100); Mean Platelet Volume 10.1 fl (7.4-10.4); Platelet Count Result 151 k/mm3 (150-375); Red Blood Count 4.19 M/mm3 (4.6-6.20); Red Cell Distribution Width 14.6 % (11.5-14.5); White Blood Count 4.3 K/mm3 (4.5-10.0)
== END 2021-01-22 13:01 | disposition home or self-care (01) ==
LOC: ANHLAB 13:01
PROVIDERS: PCP Family Medicine; Visit Provider Internal Medicine Hematology & Oncology
DX: D69.6 Thrombocytopenia, unspecified (principal)
CPT/HCPCS: 36415; 85027

== ENCOUNTER 2021-02-19 11:45 | Outpatient (CLI) | payer OTHER, SELFPAY ==
[2021-02-19 17:00] LABS: Free T4 Free Thyroxine 0.61 ng/mL (0.78-2.19)
[2021-02-19 18:57] LABS: Iron 80 ug/dL (49-181)
[2021-02-19 19:16] LABS: Percent Iron Saturation 20 % (20-50)
[2021-02-19 19:37] LABS: Total Triiodothyronine (T3) 1.18 NG/ML (0.97-1.69)
[2021-02-26 14:19] LABS: Thyroid Stimulating Immunoglob <89 % baseline (<140)
== END 2021-02-19 11:46 | disposition home or self-care (01) ==
LOC: ANHWCLAB 11:49
PROVIDERS: PCP Family Medicine; Visit Provider Internal Medicine Endocrinology, Diabetes & Metabolism
DX: E05.90 Thyrotoxicosis, unspecified without thyrotoxic crisis or storm (principal); D64.9 Anemia, unspecified
CPT/HCPCS: 36415; 83540; 83550; 84439; 84443; 84445; 84480

== ENCOUNTER 2021-03-20 10:37 | Outpatient (RCR) | payer OTHER, SELFPAY ==
[2021-03-20 11:12] VITALS: BMI 20.3
== END 2021-06-10 09:12 | disposition home or self-care (01) ==
LOC: ANHDMC 10:37
PROVIDERS: PCP Family Medicine; Referring Provider Family Medicine; Visit Provider Family Medicine
DX: E63.9 Nutritional deficiency, unspecified (principal); R64 Cachexia; Z71.3 Dietary counseling and surveillance
CPT/HCPCS: 97803

== ENCOUNTER 2021-07-29 12:56 | Outpatient (CLI) | payer OTHER, SELFPAY ==
[2021-07-29 13:37] LABS: Blood Urea Nitrogen 16 mg/dL (8-26); Carbon Dioxide 30 mmol/L (22-30); Chloride 100 mmol/L (98-109); Estimated Glomerular Filt Rate > 60; Glucose 87 mg/dL (70-105); Potassium 4.1 mmol/L (3.5-4.9); Sodium 142 mmol/L (138-146)
[2021-07-29 13:38] LABS: Basophils Percent Auto 0.5 % (0.2-1.2); Eosinophils Absolute Auto 0.2 K/mm3 (0-0.3); Eosinophils Percent Auto 3.8 % (0-4.4); Hematocrit 43.7 % (42.0-52.0); Hemoglobin 15.1 g/dL (14.0-18.0); Immature Granulocyte Absolute 0.02 K/mm3 (0.00-0.031); Immature Granulocyte Percent A 0.3 % (0-0.5); Immature Platelet Fraction Pct 7.1 % (0.9-11.2); Lymphocytes Percent Auto 23.3 % (18.3-44.2); Mean Corpuscular HGB Conc 34.6 g/dl (32-36); Mean Corpuscular Hemoglobin 31.7 pg (26-34); Mean Corpuscular Volume 91.6 fl (80-100); Mean Platelet Volume 10.2 fl (7.4-10.4); Monocytes Absolute Auto 0.5 K/mm3 (0.1-0.6); Monocytes Percent Auto 7.8 % (2.6-8.5); Neutrophils Absolute Auto 3.9 K/mm3 (1.3-6.7); Neutrophils Percent Auto 64.3 % (45.5-73.1); Platelet Count Result 130 k/mm3 (150-375); Red Blood Count 4.77 M/mm3 (4.6-6.20); Red Cell Distribution Width 12.4 % (11.5-14.5)
[2021-07-29 17:38] LABS: Alanine Aminotransferase 169 U/L (4-50); Alkaline Phosphatase 74 U/L (38-126); Anion Gap 10 mmol/L (8-16); Aspartate Amino Transferase 80 U/L (17-59); Bilirubin,Total 0.5 mg/dL (0.2-1.3); Blood Urea Nitrogen 17 mg/dL (9-20); Calcium 9.7 mg/dL (8.4-10.2); Carbon Dioxide 28 mmol/L (22-30); Chloride 103 mmol/L (98-107); Estimated Glomerular Filt Rate > 60; Glucose 87 mg/dL (65-110); Potassium 4.2 mmol/L (3.4-5.0); Sodium 141 mmol/L (137-145)
== END 2021-07-29 12:57 | disposition home or self-care (01) ==
LOC: ANHLAB 12:58
PROVIDERS: PCP Family Medicine; Visit Provider Internal Medicine Hematology & Oncology
DX: D69.6 Thrombocytopenia, unspecified (principal)
CPT/HCPCS: 36415; 80048; 80053; 85025; 85055

== ENCOUNTER 2021-12-18 11:10 | Outpatient (CLI) | payer OTHER, SELFPAY ==
[2021-12-18 16:41] LABS: Free T4 Free Thyroxine 0.76 ng/mL (0.78-2.19)
[2021-12-24 07:09] LABS: Triiodothyronine T3 Free 3.2 pg/mL (2.3-4.2)
== END 2021-12-18 11:11 | disposition home or self-care (01) ==
LOC: ANHWCLAB 11:12
PROVIDERS: PCP Family Medicine; Visit Provider Internal Medicine Endocrinology, Diabetes & Metabolism
DX: E03.8 Other specified hypothyroidism (principal); E04.9 Nontoxic goiter, unspecified
CPT/HCPCS: 36415; 84439; 84443; 84481

== ENCOUNTER 2022-01-26 13:22 | Outpatient (CLI) | payer OTHER, SELFPAY ==
[2022-01-26 13:39] LABS: Blood Urea Nitrogen 14 mg/dL (8-26); Carbon Dioxide 33 mmol/L (22-30); Chloride 98 mmol/L (98-109); Estimated Glomerular Filt Rate > 60; Glucose 98 mg/dL (70-105); Potassium 4.6 mmol/L (3.5-4.9); Sodium 141 mmol/L (138-146)
[2022-01-26 13:39] LABS: Basophils Absolute Auto 0.1 K/mm3 (0.0-0.1); Basophils Percent Auto 1.1 % (0.2-1.2); Eosinophils Absolute Auto 0.1 K/mm3 (0-0.3); Eosinophils Percent Auto 2.3 % (0-4.4); Hematocrit 44.4 % (42.0-52.0); Hemoglobin 14.5 g/dL (14.0-18.0); Immature Granulocyte Absolute 0.01 K/mm3 (0.00-0.031); Immature Granulocyte Percent A 0.2 % (0-0.5); Immature Platelet Fraction Pct 10.4 % (0.9-11.2); Lymphocytes Absolute Auto 0.89 K/mm3 (0.9-3.2); Lymphocytes Percent Auto 18.7 % (18.3-44.2); Mean Corpuscular HGB Conc 32.7 g/dl (32-36); Mean Corpuscular Hemoglobin 30.5 pg (26-34); Mean Corpuscular Volume 93.5 fl (80-100); Mean Platelet Volume 10.8 fl (7.4-10.4); Monocytes Absolute Auto 0.3 K/mm3 (0.1-0.6); Monocytes Percent Auto 5.9 % (2.6-8.5); Neutrophils Absolute Auto 3.4 K/mm3 (1.3-6.7); Neutrophils Percent Auto 71.8 % (45.5-73.1); Platelet Count Result 142 k/mm3 (150-375); Red Blood Count 4.75 M/mm3 (4.6-6.20); Red Cell Distribution Width 12.5 % (11.5-14.5); White Blood Count 4.8 K/mm3 (4.5-10.0)
[2022-01-26 16:07] LABS: Alanine Aminotransferase 74 U/L (4-50); Albumin Level 4.7 g/dL (3.5-5.1); Alkaline Phosphatase 69 U/L (38-126); Anion Gap 7 mmol/L (8-16); Aspartate Amino Transferase 37 U/L (17-59); Bilirubin,Total 0.6 mg/dL (0.2-1.3); Blood Urea Nitrogen 15 mg/dL (9-20); Calcium 9.2 mg/dL (8.4-10.2); Carbon Dioxide 33 mmol/L (22-30); Chloride 100 mmol/L (98-107); Estimated Glomerular Filt Rate > 60; Glucose 97 mg/dL (65-110); Potassium 4.6 mmol/L (3.4-5.0); Sodium 140 mmol/L (137-145)
== END 2022-01-26 13:23 | disposition home or self-care (01) ==
LOC: ANHLAB 13:23
PROVIDERS: PCP Family Medicine; Visit Provider Internal Medicine Hematology & Oncology
DX: D69.6 Thrombocytopenia, unspecified (principal)
CPT/HCPCS: 36415; 80053; 85025; 85055

== ENCOUNTER 2022-03-27 17:55 | Emergency (ER) | payer OTHER, SELFPAY ==
--- NOTE | ~2022-03-27 | CT_ITS ---
EXAMINATION: CT abdomen pelvis wo con DATE: 03/27/2022 21:21 INDICATION: Right flank pain. TECHNIQUE: Computed tomography (CT) of the abdomen and pelvis was performed without intravenous contr ast. Automated exposure control and iterative reconstruction technique were employed. The dose-length product was 272.21 mGy-cm. COMPARISON: None. FINDINGS: The visualized portions of the lung bases are clear without pneumonia or pleural effusion. The heart size is normal. No pericardial effusion. There is mild pectus excavatum. There are cysts in the liver measuring up to 6 mm. Calcifications in the spleen are consistent with old granulomatous d isease. The gallbladder, pancreas, adrenal glands, and kidneys are normal. There is no urolithiasis. There are no dilated loops of bowel. The appendix is normal. There are no pathologically enlarged lym ph nodes. There is no free intraperitoneal fluid. There is mild thoracolumbar spondylosis. IMPRESSION: 1. No etiology for the patient's symptoms. Reviewed, dictated and finalized at location A.
[2022-03-27 18:22] VITALS: BP 125/84; PULSE 80; RESP 16; TEMP 36.4; O2SAT 100
[2022-03-27 19:36] LABS: Appearance Urine Cloudy (Clear); Bilirubin Urine 1+ (Negative); Blood Urine 3+ (Negative); Color Urine Yellow (Yellow); Glucose Urine UA Negative (Negative); Ketones Urine 1+ mg/dL (Negative); Leukocyte Esterase Ur Negative LEU/UL (Negative); Nitrate Urine Negative (Negative); Protein Urine 1+ mg/dL (Negative); Urobilinogen Urine 0.2 mg/dL (<2.0)
[2022-03-27 19:58] LABS: Bacteria Urine Trace /hpf; Mucus Urine Few /lpf; RBC Urine >75 /hpf (0-2); Squamous Epithelial Cell Urine Rare /hpf (Few); WBC Urine 0-3 /hpf
[2022-03-27 19:59] LABS: Add Urine Microscopic? YES
[2022-03-27 20:33] VITALS: BP 130/90; PULSE 86; RESP 14; O2SAT 99
[2022-03-27 20:46] LABS: Basophils Percent Auto 0.4 % (0.2-1.2); Eosinophils Percent Auto 0.1 % (0-4.4); Hematocrit 44.1 % (42.0-52.0); Hemoglobin 14.6 g/dL (14.0-18.0); Immature Granulocyte Absolute 0.03 K/mm3 (0.00-0.031); Immature Granulocyte Percent A 0.3 % (0-0.5); Lymphocytes Absolute Auto 0.69 K/mm3 (0.9-3.2); Lymphocytes Percent Auto 6.6 % (18.3-44.2); Mean Corpuscular HGB Conc 33.1 g/dl (32-36); Mean Corpuscular Hemoglobin 30.4 pg (26-34); Mean Corpuscular Volume 91.9 fl (80-100); Mean Platelet Volume 11.2 fl (7.4-10.4); Monocytes Absolute Auto 0.3 K/mm3 (0.1-0.6); Monocytes Percent Auto 2.8 % (2.6-8.5); Neutrophils Absolute Auto 9.4 K/mm3 (1.3-6.7); Neutrophils Percent Auto 89.8 % (45.5-73.1); Platelet Count Result 164 k/mm3 (150-375); Red Cell Distribution Width 12.6 % (11.5-14.5); White Blood Count 10.4 K/mm3 (4.5-10.0)
[2022-03-27 20:56] LABS: Alanine Aminotransferase 35 U/L (4-50); Albumin Level 5.3 g/dL (3.5-5.1); Alkaline Phosphatase 89 U/L (38-126); Anion Gap 11 mmol/L (8-16); Aspartate Amino Transferase 35 U/L (17-59); Bilirubin,Total 0.9 mg/dL (0.2-1.3); Blood Urea Nitrogen 13 mg/dL (9-20); Calcium 9.3 mg/dL (8.4-10.2); Carbon Dioxide 29 mmol/L (22-30); Chloride 99 mmol/L (98-107); Estimated CRCL calculation 88 ml/min; Estimated Glomerular Filt Rate > 60; Glucose 118 mg/dL (65-110); Sodium 139 mmol/L (137-145)
[2022-03-27 21:00] VITALS: BP 117/87; PULSE 99; RESP 14; O2SAT 96
[2022-03-27] MEDS: SODIUM CHLORIDE 0.9% IV 1,000 ML 999 ML IV CONT (21:04)
[2022-03-27 22:00] VITALS: BP 122/88; PULSE 73; RESP 14; O2SAT 99
--- NOTE | 2022-03-27 22:38 | ED.GENADULT ---
HPI - General Adult General Chief complaint: Abdominal Pain Stated complaint: lower back pain with decreased urination Time Seen by Provider: 03/27/22 20:29 History of Present Illness HPI narrative: Is a 36-year-old gentleman who presents the emergency department with chief complaint of right flank pain. Patient reports that he had sudden onset of sharp discomfort in his right flank area reports that the pain was not improved by anything reports he was unable to get comfortable in any position reports he had some nausea with it. Patient states upon arrival to the emergency department the pain has gotten much better on its own without any kind of intervention. Patient reports no prior history of kidney stones. Patient denies fever denies chills denies localizing abdominal pain or pain worsened with movement. Related Data Home Medications Medication Instructions Recorded Confirmed cholecalciferol (vitamin D3) 25 25 mcg PO DAILY 01/27/21 12/18/21 mcg (1,000 unit) capsule fluvoxamine 25 mg tablet 300 mg PO QHS tablet 06/19/21 12/18/21 Allergies Allergy/AdvReac Type Severity Reaction Status Date / Time No Known Allergies Allergy Verified 03/27/22 20:34 Review of Systems Review of Systems: A 10 system review of systems was completed on the patient and is negative except for what is stated in the HPI. Nursing and ancillary documentation was reviewed. [facility] Past Medical History Medical History Anemia Anxiety Depression Elevated liver enzymes Hemorrhoids History of OCD (obsessive compulsive disorder) Irritable bowel syndrome Surgical History Surgical History History of colonoscopy Family History Family History Father Unknown family medical history Mother Alive and well Hyperthyroidism Other Depression Hypothyroidism Thyroid disease Social History Social History Social History: Mr. Mcneil lives at home with his mother. He is independent in his ADLs but does not drive. His PCP is Dr. Siddiqui. He is a lifelong nonsmoker and does not drink alcohol or use drugs. He designates his sister, Jennifer, as his surrogate decision maker and he would like to be a full code. Smoking status: Never smoker Tobacco type: cigarettes Second hand tobacco smoke exposure: No Alcohol intake: never Substance use: never Substance use type: does not use Additional living arrangements comments: mother and her spouse Gender identity (if verbalized by the patient): Male Spiritual care concerns: No Agree to blood products: Yes Exam Narrative: GENERAL: Well-appearing, well-nourished, and in no acute distress. HEAD: Normocephalic, atraumatic. EYES: PERRLA and EOMI. ENT: Nares clear, no rhinorrhea or epistaxis. Mucous membranes moist. NECK: Supple. CHEST: Clear to auscultation. No respiratory distress. HEART: Regular rate and rhythm. No murmur heard. Normal peripheral pulses. ABDOMEN: Soft, nontender, nondistended, normal active bowel sounds. EXTREMITIES: Normal range of motion. No edema. SKIN: Warm, dry, no rash. NEURO: No focal deficits. Alert and oriented x3. PSYCH: Normal mood and affect. Course Course Emergency Course: Patient's urinalysis showed evidence of red blood cells. There is no evidence of infection. Laboratory studies were otherwise was within normal limits a CT scan of the abdomen pelvis showed no evidence of acute findings. Given the patient is currently asymptomatic and had microscopic blood in his urine felt most likely the patient has passed a kidney stone. The patient was instructed with return precautions and instructed to follow-up with his primary care physician. Vital Signs Vital signs: Vital Signs Temperature 36.4 C L 05/
[2022-03-27 23:03] VITALS: BP 118/89; PULSE 75; RESP 14; O2SAT 100
== END 2022-03-27 23:05 | disposition home or self-care (01) ==
PROVIDERS: Emergency Medicine; Emergency Provider Emergency Medicine; PCP Family Medicine
DX: R10.9 Unspecified abdominal pain (principal); K58.9 Irritable bowel syndrome, unspecified; F41.9 Anxiety disorder, unspecified; F32.A Depression, unspecified; F42.9 Obsessive-compulsive disorder, unspecified; Z86.2 Personal history of diseases of the blood and blood-forming organs and certain disorders involving the immune mechanism
CPT/HCPCS: 36415; 74176; 80053; 81001; 85025; 96360; 99284; J7030